=== PATIENT | female | born 1930 | race Caucasian/White ===

== ENCOUNTER 2018-05-26 09:43 | Day surgery (SDC) | payer MEDICARE ==
[~2018-05-26] VITALS: Ht 167.6 cm; Wt 80.5 kg
[~2018-05-26 09:43] MED LIST: ALBU8.5H8 IH; ASPI-612 PO; ATOR40TA71 PO; BUDE10.24 IH; CLOP75TA8 PO; FERR325T39 PO; HYDR12.5 PO; LISI-600 PO; MULT-1141 PO
[2018-05-26 10:00] VITALS: BP 102/63
[2018-05-26] MEDS ORDERED: CYAN10006 IM (10:16)
[2018-05-26] MEDS ORDERED: FURO-150 PO (10:16)
[2018-05-26] MEDS ORDERED: FOLI1TAB16 PO (10:16)
[2018-05-26] MEDS ORDERED: HYDR-3972 PO (10:17)
[2018-05-26] MEDS ORDERED: VIT1TABL83 PO (10:18)
[2018-05-26] MEDS ORDERED: METO25TA6 PO (10:18)
[2018-05-26] MEDS ORDERED: ERGO500014 PO (10:19)
[2018-05-26] MEDS ORDERED: ALBU8.5H8 INH (10:19)
[2018-05-26] MEDS ORDERED: [UNRECOGNIZED DRUG - CODE] IM (10:23)
[2018-05-26] MEDS ORDERED: fentaNYL/PF 50MCG/1 ML 2ML syringe ONE (10:47)
[2018-05-26] MEDS ORDERED: MIDAZolam 5mg/5ml vial ONE (10:47)
[2018-05-26] MEDS ORDERED: LIDOcaine Viscous 15ml cup ONE (10:47)
[2018-05-26 11:50] VITALS: BP 147/55
[2018-05-26 11:58] VITALS: BP 141/57
[2018-05-26 12:08] VITALS: BP 140/48
[2018-05-26 12:18] VITALS: BP 127/52
== END 2018-05-26 12:30 | disposition home or self-care (01) ==
LOC: GI LAB 09:43
PROVIDERS: ATTEND Internal Medicine Gastroenterology
DX: K29.50 Unspecified chronic gastritis without bleeding (principal); K44.9 Diaphragmatic hernia without obstruction or gangrene; D50.9 Iron deficiency anemia, unspecified; K22.8 Other specified diseases of esophagus
CPT/HCPCS: 43239; J2250; J3010; J7030; 45378; 88305; 99152; 99153; A4620

== ENCOUNTER 2018-06-19 12:36 | Emergency (ER) | payer MEDICARE ==
[~2018-06-19] VITALS: Ht 167.6 cm; Wt 79.5 kg
[~2018-06-19 12:36] MED LIST changes: +ALBU8.5H8 INH; -BUDE10.24 IH; +CYAN10006 IM; +ERGO500014 PO; +FOLI1TAB16 PO; +FURO-150 PO; +HYDR-3972 PO; -HYDR12.5 PO; +METO25TA6 PO; +VIT1TABL83 PO; +[UNRECOGNIZED DRUG - CODE] IM
[2018-06-19] MEDS ORDERED: LIDOcaine 5% patch TP ONE (13:15)
[2018-06-19] MEDS ORDERED: triamcinolone acetonide 40mg/ml inj IM ONE (13:15)
[2018-06-19] MEDS ORDERED: traMADol 50MG tablet PO ONE (13:15)
[2018-06-19] MEDS ORDERED: BUPIVAcaine/PF 2.5 mg/ml (0.25%) 30ml vial IJ ONE (13:15)
[2018-06-19] MEDS ORDERED: acetaminophen 325mg tablet PO ONE (13:15)
[2018-06-19] MEDS ORDERED: BUPIVAcaine/PF 2.5mg/ml (0.25%) 10ml vial IJ ONE (13:25)
[2018-06-19] MEDS ORDERED: LIDO700A32 TOP (13:47)
[2018-06-19] MEDS ORDERED: TRAM50TA2 PO (13:47)
[2018-06-19 13:58] VITALS: BP 121/97
== END 2018-06-19 13:59 | disposition home or self-care (01) ==
LOC: ER 12:37
DX: M54.5 Low back pain (principal); G89.29 Other chronic pain; I10 Essential (primary) hypertension; J45.909 Unspecified asthma, uncomplicated; Z98.890 Other specified postprocedural states; Z79.82 Long term (current) use of aspirin; Z79.899 Other long term (current) drug therapy
CPT/HCPCS: 99284; J3301; J3490

== ENCOUNTER 2018-07-26 15:48 | Inpatient (IN) | payer MEDICARE | END 2018-08-01 17:20 | disposition home or self-care (01) | LOC: SUR 3N 07-31 12:05 → ER 15:48 → CICU 2S 07-27 16:29 → SUR 3N 19:52 | PROC: 3E03317 Introduction of Other Thrombolytic into Peripheral Vein, Percutaneous Approach (ICD-10-PCS; principal; ~2018-07-26) | DX: I73.9 Peripheral vascular disease, unspecified (principal); N18.4 Chronic kidney disease, stage 4 (severe); J44.9 Chronic obstructive pulmonary disease, unspecified; E78.5 Hyperlipidemia, unspecified; I70.292 Other atherosclerosis of native arteries of extremities, left leg; Z72.0 Tobacco use ==

== ENCOUNTER 2018-08-05 09:52 | Emergency (ER) | payer MEDICARE ==
[~2018-08-05] VITALS: Ht 167.6 cm; Wt 79.0 kg
[~2018-08-05 09:52] MED LIST changes: -ALBU8.5H8 INH; +APIX5TAB3 PO; -ASPI-612 PO; +BUDE10.2 IH; -FURO-150 PO; -[UNRECOGNIZED DRUG - CODE] IM; +[UNRECOGNIZED DRUG - CODE] SQ
[2018-08-05 11:06] LABS: BASOPHILS % (AUTO) 1.5 % (0-1); EOSINOPHILS # (AUTO) 0.1 X10'3 (0-0.9); EOSINOPHILS % (AUTO) 3.2 % (0-6); LYMPHOCYTES # (AUTO) 0.6 X10'3 (1.1-4.8); LYMPHOCYTES % (AUTO) 20.3 % (21-51); MEAN CORPUSCULAR HEMOGLOBIN 35.8 PG (27.0-31.0); MEAN CORPUSCULAR HGB CONC 33.3 g/dL (33.0-36.5); MEAN CORPUSCULAR VOLUME 107.5 FL (78-98); MEAN PLATELET VOLUME 10.1 FL (7.4-10.4); MONOCYTES # (AUTO) 0.3 X10'3 (0-0.9); MONOCYTES % (AUTO) 9.7 % (2-12); NEUTROPHILS % (AUTO) 65.3 % (42-75); PLATELET COUNT 141 X10'3 (140-440); RED BLOOD COUNT 2.23 X10'6 (4.20-5.60); RED CELL DISTRIBUTION WIDTH 28.9 % (11.5-14.5); WHITE BLOOD COUNT 3.1 X10'3 (4.5-11.0)
[2018-08-05 11:22] LABS: ALANINE AMINOTRANSFERASE 21 U/L (12-78); ALBUMIN 2.7 G/DL (3.4-5.0); ALBUMIN/GLOBULIN RATIO 0.9 (1.1-1.5); ALKALINE PHOSPHATASE 55 IU/L (46-116); ANION GAP 6 (8-16); ASPARTATE AMINO TRANSFERASE 11 U/L (10-37); BILIRUBIN,TOTAL 0.3 MG/DL (0.1-1.0); BLOOD UREA NITROGEN 16 MG/DL (7-18); BUN/CREATININE RATIO 13.1 (6.6-38.0); CALCIUM 8.2 MG/DL (8.5-10.1); CHLORIDE 110 MMOL/L (99-107); CREATININE 1.22 MG/DL (0.40-0.90); GLUCOSE 121 MG/DL (70-104); POTASSIUM 4.5 MMOL/L (3.5-5.1); SODIUM 141 MMOL/L (135-145); TOTAL CARBON DIOXIDE 24.8 MMOL/L (24-32); TOTAL PROTEIN 5.8 G/DL (6.4-8.2); eGFR 42 ML/MIN
[2018-08-05 11:38] LABS: PLATELET ESTIMATE NORMAL
[2018-08-05 11:41] LABS: ANISOCYTOSIS 3+; HYPOCHROMASIA 1+
[2018-08-05 11:42] LABS: ELLIPTOCYTES 1+; POLYCHROMASIA FEW; SCHISTOCYTES 1+
[2018-08-05] MEDS ORDERED: ACET-3068 PO (12:57)
[2018-08-05 13:10] VITALS: BP 165/87
== END 2018-08-05 13:14 | disposition home or self-care (01) ==
LOC: ER 09:52
DX: I73.89 Other specified peripheral vascular diseases (principal); E78.00 Pure hypercholesterolemia, unspecified; I10 Essential (primary) hypertension; J45.909 Unspecified asthma, uncomplicated; G89.29 Other chronic pain; F17.200 Nicotine dependence, unspecified, uncomplicated; Z98.890 Other specified postprocedural states; Z79.899 Other long term (current) drug therapy; Z79.82 Long term (current) use of aspirin
CPT/HCPCS: 36415; 80053; 85025; 85610; 93922; 93926; 99284

== ENCOUNTER 2018-08-07 14:20 | Emergency (ER) | payer MEDICARE ==
[~2018-08-07] VITALS: Ht 167.6 cm; Wt 79.5 kg
[~2018-08-07 14:20] MED LIST changes: +ACET-3068 PO
[2018-08-07 14:46] VITALS: BP 146/60
[2018-08-07] MEDS ORDERED: TRIA15CR61 TP (15:29)
== END 2018-08-07 15:50 | disposition home or self-care (01) ==
LOC: ER 14:21
DX: R23.4 Changes in skin texture (principal); I73.9 Peripheral vascular disease, unspecified; I10 Essential (primary) hypertension; E78.00 Pure hypercholesterolemia, unspecified; J45.909 Unspecified asthma, uncomplicated; G89.29 Other chronic pain; M54.9 Dorsalgia, unspecified; Z88.8 Allergy status to other drugs, medicaments and biological substances
CPT/HCPCS: 99283

== ENCOUNTER 2018-08-17 15:39 | Outpatient (CLI) | payer MEDICARE ==
[~2018-08-17 15:39] MED LIST changes: +TRIA15CR61 TP
== END 2018-08-17 23:59 | disposition home or self-care (01) ==
LOC: VAS 15:39
PROVIDERS: ATTEND Surgery
DX: M79.604 Pain in right leg (principal); R60.0 Localized edema; I10 Essential (primary) hypertension; J45.909 Unspecified asthma, uncomplicated; F17.200 Nicotine dependence, unspecified, uncomplicated
CPT/HCPCS: 93971

== ENCOUNTER 2018-09-27 10:39 | Inpatient (IN) | payer MEDICARE ==
[~2018-09-27] VITALS: Ht 167.6 cm; Wt 78.4 kg
[~2018-09-27 10:39] MED LIST changes: -ACET-3068 PO; -TRIA15CR61 TP
[2018-09-27] MEDS ORDERED: heparin 25,000 UNIT/250ml bag 250 ML IV SCH (11:57)
[2018-09-27] MEDS ORDERED: heparin 10,000 units/1 ML INJ IV ONE (12:00)
[2018-09-27 12:27] LABS: EOSINOPHILS # (AUTO) 0.1 X10'3 (0-0.9); LYMPHOCYTES # (AUTO) 0.9 X10'3 (1.1-4.8); MONOCYTES # (AUTO) 0.2 X10'3 (0-0.9); NEUTROPHILS # (AUTO) 1.3 X10'3 (1.8-7.7); WHITE BLOOD COUNT 2.6 X10'3 (4.5-11.0)
[2018-09-27 12:28] LABS: BASOPHILS % (AUTO) 1.3 % (0-1); EOSINOPHILS % (AUTO) 4.7 % (0-6); HEMATOCRIT 30.5 % (35.0-45.0); HEMOGLOBIN 10.2 g/dl (12.0-16.0); LYMPHOCYTES % (AUTO) 35.3 % (21-51); MEAN CORPUSCULAR HEMOGLOBIN 35.2 PG (27.0-31.0); MEAN CORPUSCULAR HGB CONC 33.4 g/dL (33.0-36.5); MEAN CORPUSCULAR VOLUME 105.4 FL (78-98); MEAN PLATELET VOLUME 10.3 FL (7.4-10.4); NEUTROPHILS % (AUTO) 50.7 % (42-75); PLATELET COUNT 151 X10'3 (140-440); RED BLOOD COUNT 2.89 X10'6 (4.20-5.60)
[2018-09-27 12:45] LABS: ALANINE AMINOTRANSFERASE 18 U/L (12-78); ALBUMIN 3.4 G/DL (3.4-5.0); ALBUMIN/GLOBULIN RATIO 0.9 (1.1-1.5); ALKALINE PHOSPHATASE 80 IU/L (46-116); ANION GAP 7 (8-16); ASPARTATE AMINO TRANSFERASE 8 U/L (10-37); BILIRUBIN,TOTAL 0.5 MG/DL (0.1-1.0); BLOOD UREA NITROGEN 27 MG/DL (7-18); CALCIUM 8.8 MG/DL (8.5-10.1); CHLORIDE 105 MMOL/L (99-107); GLUCOSE 117 MG/DL (70-104); POTASSIUM 4.7 MMOL/L (3.5-5.1); SODIUM 138 MMOL/L (135-145); TOTAL CARBON DIOXIDE 25.7 MMOL/L (24-32); TOTAL PROTEIN 7.2 G/DL (6.4-8.2); eGFR 33 ML/MIN
[2018-09-27 12:50] LABS: PARTIAL THROMBOPLASTIN TIME 31 SECONDS (22-32)
[2018-09-27 12:51] LABS: MAGNESIUM 2.4 MG/DL (1.5-2.4)
[2018-09-27 12:59] LABS: ANISOCYTOSIS 3+; PLATELET ESTIMATE NORMAL; TOTAL CELLS COUNTED 100
--- NOTE | 2018-09-27 13:03 | NUR ---
SOFTWARE DESIGN MANAGER AT BEDSIDE.
[2018-09-27] MEDS ORDERED: FURO-149 PO (13:07)
[2018-09-27] MEDS: heparin 25,000 UNIT/250ml bag 250 ML IV SCH ×2 (13:20→20:11)
[2018-09-27] MEDS ORDERED: ondansetron/PF 4mg/2ml inj IV PRN (13:20)
[2018-09-27] MEDS ORDERED: potassium CL 10mEq/100ml bag 100 ML IV PRN ×2 (13:20)
[2018-09-27] MEDS ORDERED: magnesium 4gm in 100ml NS 100 ML IV PRN (13:20)
[2018-09-27] MEDS ORDERED: magnesium 2GM in 50ml NS 50 ML IV PRN (13:20)
[2018-09-27] MEDS ORDERED: acetaminophen 325mg tablet PO PRN (13:20)
[2018-09-27] MEDS ORDERED: heparin 10,000 units/1 ML INJ IV PRN (13:20)
[2018-09-27] MEDS ORDERED: potassium Cl 20 mEq SR tablet PO PRN ×2 (13:20)
[2018-09-27] MEDS ORDERED: mag hydrox/Alum hydrox/simeth 30ml oral suspension PO PRN (13:20)
[2018-09-27] MEDS ORDERED: APIX5TAB5 PO (13:48)
[2018-09-27 14:38] VITALS: BP 140/55
--- NOTE | 2018-09-27 15:00 | NUR ---
Patient admitted to room 3018b. Patient stable and denies complaints. Bed is low and locked, call light within reach. Will continue to monitor at this time.
--- NOTE | 2018-09-27 15:05 | NUR ---
PAGER ID: [phone] MESSAGE: RIC Ta, ext [phone], [phone], Cale. Patient asking for water, confirm NPO status please, Thank you.
--- NOTE | 2018-09-27 15:25 | NUR ---
Dr. Quiroz at bedside, dewayne'd patient having dinner, NPO after midnight tonight for surgery tomorrow.
[2018-09-27 15:36] VITALS: BP 155/50
[2018-09-27 18:00] VITALS: BP 154/41
--- NOTE | 2018-09-27 18:17 | NUR ---
Orientee documentation: I have reviewed and agree with all interventions, assessments performed and documented by Cely LARIOS. Orientee Medication Administration: For this medication-pass time frame, all medication were reviewed, dispensed, administered and documented per hospital policy by Cely LARIOS. Constructive criticism given as needed.
[2018-09-27] MEDS ORDERED: ringers solution, lacted 1,000 ML IV ONE (18:19)
--- NOTE | 2018-09-27 18:23 | NUR ---
Problems reprioritized. Patient report given, questions answered & plan of care reviewed with RIC Ernst. Patient is currently resting in bed, bed locked and low, call light in reach. Heparin drip infusing at 1300units/hr. Stable at shift change.
--- NOTE | 2018-09-27 18:30 | NUR ---
Patient in room PCU 3018. I have received report from Georgie/ Cely LARIOS and had the opportunity to ask questions and assume patient care. Will continue to monitor.
--- NOTE | 2018-09-27 19:02 | NUR ---
Notified Dr. Zhu that the patient's PTT came back at 102 critical. Received order to follow protocol. Will continue to monitor.
--- NOTE | 2018-09-27 19:07 | NUR ---
Held heparin per protocol, will continue to monitor.
[2018-09-27 22:00] VITALS: BP 172/50
[2018-09-28] VITALS (23 sets, daily range): BP systolic 118–196; BP diastolic 34–68
[2018-09-28 02:19] LABS: BASOPHILS % (AUTO) 1.5 % (0-1); EOSINOPHILS # (AUTO) 0.1 X10'3 (0-0.9); EOSINOPHILS % (AUTO) 4.5 % (0-6); HEMATOCRIT 25.3 % (35.0-45.0); HEMOGLOBIN 8.4 g/dl (12.0-16.0); LYMPHOCYTES # (AUTO) 1.2 X10'3 (1.1-4.8); LYMPHOCYTES % (AUTO) 41.9 % (21-51); MEAN CORPUSCULAR HGB CONC 33.1 g/dL (33.0-36.5); MEAN CORPUSCULAR VOLUME 105.6 FL (78-98); MEAN PLATELET VOLUME 10.3 FL (7.4-10.4); MONOCYTES # (AUTO) 0.2 X10'3 (0-0.9); NEUTROPHILS # (AUTO) 1.3 X10'3 (1.8-7.7); NEUTROPHILS % (AUTO) 44.1 % (42-75); PLATELET COUNT 122 X10'3 (140-440); RED CELL DISTRIBUTION WIDTH 31.7 % (11.5-14.5); WHITE BLOOD COUNT 2.9 X10'3 (4.5-11.0)
[2018-09-28 02:26] LABS: ALANINE AMINOTRANSFERASE 14 U/L (12-78); ALBUMIN 2.6 G/DL (3.4-5.0); ALBUMIN/GLOBULIN RATIO 0.8 (1.1-1.5); ALKALINE PHOSPHATASE 65 IU/L (46-116); ANION GAP 3 (8-16); ASPARTATE AMINO TRANSFERASE 10 U/L (10-37); BILIRUBIN,TOTAL 0.3 MG/DL (0.1-1.0); BLOOD UREA NITROGEN 23 MG/DL (7-18); BUN/CREATININE RATIO 18.4 (6.6-38.0); CALCIUM 7.9 MG/DL (8.5-10.1); CHLORIDE 110 MMOL/L (99-107); CREATININE 1.25 MG/DL (0.40-0.90); GLUCOSE 102 MG/DL (70-104); MAGNESIUM 2.1 MG/DL (1.5-2.4); POTASSIUM 4.2 MMOL/L (3.5-5.1); SODIUM 140 MMOL/L (135-145); TOTAL CARBON DIOXIDE 27.4 MMOL/L (24-32); TOTAL PROTEIN 5.7 G/DL (6.4-8.2); eGFR 41 ML/MIN
[2018-09-28 03:23] LABS: ANISOCYTOSIS 3+; PLATELET ESTIMATE DECREASED; TOTAL CELLS COUNTED 50
[2018-09-28 03:24] LABS: ELLIPTOCYTES FEW; POLYCHROMASIA FEW
[2018-09-28] MEDS ORDERED: famotidine 20mg tablet PO ONE ×2 (06:00→16:00)
--- NOTE | 2018-09-28 06:10 | NUR ---
Patient requested breathing treatment, called Dr. Zhu and received order for Duoneb Q4 PRN, Paged RT.
--- NOTE | 2018-09-28 06:30 | NUR ---
Problems reprioritized. Patient report given, questions answered & plan of care reviewed with Georgie & Cely LARIOS.
[2018-09-28] MEDS: HYDROmorphone inj. 0.5 MG/0.5 ML DISP.SYRIN IV PRN (06:57)
--- NOTE | 2018-09-28 07:21 | NUR ---
Patient in room PCU 3018. I have received report from RIC Montague and had the opportunity to ask questions and assume patient care. Patient is currently resting in bed, bed locked and low, call light in reach. Heparin running at 1100 units/hr and LR running at 50ml/hr per orders. No acute distress, will continue to monitor.
--- NOTE | 2018-09-28 07:21 | NUR ---
PAGER ID: [phone] MESSAGE: RIC Ta, ext [phone], Cale, BP was 196/67 this AM, gave 0.5mg dilaudid for pain, BP currently 154/64. Pharmacy requesting med req to be addressed, patient normally takes metoprolol at home for BP.
[2018-09-28] MEDS ORDERED: cyanocobalamin 1,000 mcg/ml inj IM SCH (07:40)
[2018-09-28] MEDS: K and/or MAG REPLACEMENT MC SCH (08:00)
--- NOTE | 2018-09-28 08:39 | NUR ---
PTT therapeutic@50 with heparin at 1100 units/hr. put in next PTT for 1440.
[2018-09-28] MEDS: multivitamins, therapeutics tablet PO SCH (08:57)
[2018-09-28] MEDS: vitamin B comp w/Vit. C tab 1 TAB TABLET PO SCH (08:58)
[2018-09-28] MEDS: folic acid 1mg tablet PO SCH (08:58)
[2018-09-28] MEDS: ferrous sulfate 325mg tablet PO SCH ×2 (08:58→20:01)
[2018-09-28] MEDS: lisinopril 20mg tablet PO SCH (09:01)
[2018-09-28] MEDS: metoprolol tartrate 25mg tablet PO SCH ×2 (09:02→20:01)
[2018-09-28] MEDS ORDERED: ceFAZolin 1000mg inj ONE ×3 (09:18→11:18)
[2018-09-28] MEDS ORDERED: heparin 10,000 units/1 ML INJ ONE (09:18)
--- NOTE | 2018-09-28 09:44 | NUR ---
Surgical transported patient to OR for fempop procedure. Patient vitals stable at time of transfer.
[2018-09-28] MEDS ORDERED: LIDOcaine 1% (10mg/ml) 2ml vial ONE (10:46)
[2018-09-28] MEDS ORDERED: midazolam 2 mg/2 ml injection ONE (10:50)
[2018-09-28] MEDS ORDERED: sevoflurane 250ml liquid IH ONE (10:53)
[2018-09-28] MEDS ORDERED: rocuronium 10mg/ml inj IV ONE (11:00)
[2018-09-28] MEDS ORDERED: propofol inj 20 ML IV ONE (11:00)
[2018-09-28] MEDS ORDERED: fentaNYL/PF 50MCG/1 ML 2ML syringe ONE (11:01)
[2018-09-28] MEDS ORDERED: albumin (Human) 5% 250ml 250 ML IV ONE ×2 (11:03)
[2018-09-28] MEDS ORDERED: heparin 1,000unit/ml 10ml vial 10 ML ONE (11:18)
--- NOTE | 2018-09-28 14:40 | NUR ---
Received from OR via ICU bed, accompanied by Anesthesiologist MARIA LUISA and report given by Anesthesiolgist. Pt moves all extremeties, VS stable, ART line zeroed and calibrated, MD at bedside. Provena to groin and provena to left medial lower extrem present, good seal to dressings, with left foot dressing CDI and wrapped with gauze. Long island dressing from upper medial thigh to mid calf also CDI. Mask to 10L present O2 sat 98%. IV x2 to Right arm 20G. Schwab cath draining yellow fluid.
--- NOTE | 2018-09-28 15:05 | NUR ---
Report given to receiving nurse, belongings gathered and taken to room 2040
[2018-09-28] MEDS ORDERED: meperidine/PF 25mg/ml syringe ONE (15:12)
[2018-09-28] MEDS ORDERED: ringers solution, lacted 1,000 ML IV SCH (15:24)
[2018-09-28] MEDS ORDERED: hydrALAZINE 20mg/ml inj. IV PRN (15:25)
[2018-09-28] MEDS ORDERED: enalaprilat dihydrate 2.5mg/2ml vial IV PRN (15:25)
[2018-09-28] MEDS ORDERED: morphine 4 MG/ML inj SYRINge IV PRN ×2 (15:25)
[2018-09-28] MEDS ORDERED: ondansetron/PF 4mg/2ml inj IV PRN (15:25)
[2018-09-28] MEDS ORDERED: fentaNYL/PF 50MCG/1 ML 2ML syringe IV PRN ×2 (15:25)
--- NOTE | 2018-09-28 15:26 | NUR ---
Report called to Chelsey LARIOS in ICU.
--- NOTE | 2018-09-28 15:50 | NUR ---
Report called to receiving nurse. Transferred via ICU bed Belongings to be brought from PCU to ICU, but gold chain in the chart, hearing aid in ear. Special Issues communicated to receiving nurse. VS remained stable, dressings and incisions remain CDI and shown to receiving nurse. Pt marcos catheter emptied and documented, IV's intact, ART line zeroed.
--- NOTE | 2018-09-28 18:35 | NUR ---
Patient in room ICU 2040. I have received report from Chelsey LARIOS, and had the opportunity to ask questions and assume patient care.
--- NOTE | 2018-09-28 20:00 | NUR ---
PT is resting with no s/s of distress noted at this time. VSS. PT is receiving 2L O2 to NC, tolerating well, O2 sat >95%. PT has Prevena W[place] to LT groin and calf, CDI with no drainage noted. PT also has Island drsg to inner LT thigh and lower leg, some oozing noted and marked. A-Line to LT radial, CDI, zeroed and transduced to pressure tubing. Schwab in place, draining to gravity. Bed is locked and low. Call light is within reach. Will continue to monitor.
[2018-09-28] MEDS: ipratropium/albuterol 3ml nebule NEB PRN (20:01)
[2018-09-28] MEDS: HYDROmorphone 1 mg/ml syringe IV PRN (20:02)
[2018-09-28] MEDS: budesonide 0.5mg/2ml UD nebule IH SCH (20:02)
[2018-09-28] MEDS: atorvastatin 20mg tablet PO SCH (22:03)
[2018-09-28] MEDS: normal saline 1000ml 1,000 ML IV SCH (22:04)
--- NOTE | 2018-09-28 23:00 | NUR ---
PT sleeping with no s/s of distress noted at this time. VSS. Bed is locked and low. Call light is within reach. Will continue to monitor.
[2018-09-29] VITALS (19 sets, daily range): BP systolic 96–142; BP diastolic 32–47
--- NOTE | 2018-09-29 02:00 | NUR ---
Arterial line to LT radial DC'd d/t it continuously not working and line would not draw. Line DC'd, direct pressure held until hemostasis achieved. Drsg placed. Will continue to monitor.
[2018-09-29] MEDS: heparin 25,000 UNIT/250ml bag 250 ML IV SCH (03:48)
[2018-09-29] MEDS: HYDROmorphone inj. 0.5 MG/0.5 ML DISP.SYRIN IV PRN ×3 (04:09→23:39)
--- NOTE | 2018-09-29 06:43 | NUR ---
Problems reprioritized. Patient report given, questions answered & plan of care reviewed with Conrad LARIOS.
[2018-09-29 06:56] LABS: BASOPHILS % (AUTO) 0.4 % (0-1); EOSINOPHILS # (AUTO) 0.1 X10'3 (0-0.9); EOSINOPHILS % (AUTO) 1.8 % (0-6); HEMOGLOBIN 7.8 g/dl (12.0-16.0); LYMPHOCYTES # (AUTO) 0.6 X10'3 (1.1-4.8); LYMPHOCYTES % (AUTO) 10.1 % (21-51); MEAN CORPUSCULAR HEMOGLOBIN 35.3 PG (27.0-31.0); MEAN CORPUSCULAR HGB CONC 32.4 g/dL (33.0-36.5); MEAN CORPUSCULAR VOLUME 108.8 FL (78-98); MEAN PLATELET VOLUME 10.5 FL (7.4-10.4); MONOCYTES # (AUTO) 0.5 X10'3 (0-0.9); NEUTROPHILS # (AUTO) 4.5 X10'3 (1.8-7.7); NEUTROPHILS % (AUTO) 79.7 % (42-75); PLATELET COUNT 127 X10'3 (140-440); RED BLOOD COUNT 2.21 X10'6 (4.20-5.60); RED CELL DISTRIBUTION WIDTH 31.8 % (11.5-14.5); WHITE BLOOD COUNT 5.7 X10'3 (4.5-11.0)
[2018-09-29 07:07] LABS: ALANINE AMINOTRANSFERASE 19 U/L (12-78); ALBUMIN 2.9 G/DL (3.4-5.0); ALKALINE PHOSPHATASE 76 IU/L (46-116); ANION GAP 7 (8-16); ASPARTATE AMINO TRANSFERASE 13 U/L (10-37); BILIRUBIN,TOTAL 0.4 MG/DL (0.1-1.0); BLOOD UREA NITROGEN 23 MG/DL (7-18); BUN/CREATININE RATIO 16.2 (6.6-38.0); CALCIUM 7.5 MG/DL (8.5-10.1); CHLORIDE 109 MMOL/L (99-107); CREATININE 1.42 MG/DL (0.40-0.90); GLUCOSE 129 MG/DL (70-104); MAGNESIUM 1.9 MG/DL (1.5-2.4); POTASSIUM 4.8 MMOL/L (3.5-5.1); SODIUM 140 MMOL/L (135-145); TOTAL CARBON DIOXIDE 24.1 MMOL/L (24-32); TOTAL PROTEIN 5.9 G/DL (6.4-8.2); eGFR 35 ML/MIN
[2018-09-29 07:34] LABS: ANISOCYTOSIS 3+; LARGE PLATELETS FEW; PLATELET ESTIMATE DECREASED
[2018-09-29 07:35] LABS: SCHISTOCYTES FEW
[2018-09-29] MEDS: normal saline 1000ml 1,000 ML IV SCH (07:38)
[2018-09-29] MEDS: lisinopril 20mg tablet PO SCH (07:43)
[2018-09-29] MEDS: metoprolol tartrate 25mg tablet PO SCH ×2 (07:43→19:06)
[2018-09-29] MEDS: albuterol 2.5 MG/3 ML nebule NEB PRN ×2 (07:47→20:05)
[2018-09-29] MEDS: budesonide 0.5mg/2ml UD nebule IH SCH ×2 (07:47→20:05)
[2018-09-29] MEDS: K and/or MAG REPLACEMENT MC SCH (08:00)
[2018-09-29] MEDS: vitamin B comp w/Vit. C tab 1 TAB TABLET PO SCH (08:28)
[2018-09-29] MEDS: ferrous sulfate 325mg tablet PO SCH ×2 (08:28→19:05)
[2018-09-29] MEDS: multivitamins, therapeutics tablet PO SCH (08:28)
[2018-09-29] MEDS: folic acid 1mg tablet PO SCH (08:29)
--- NOTE | 2018-09-29 13:28 | NUR ---
Dressings to left leg saturated. Island dressing replaced. Provina dressing still intact with good suction
[2018-09-29] MEDS: HYDROmorphone 1 mg/ml syringe IV PRN (14:38)
--- NOTE | 2018-09-29 15:33 | NUR ---
PAGER ID: [phone] MESSAGE: Guerline Madsen 2040: patient is being transferred back to your service. She is getting ready to transfer to surgical. Wanted to inform you urine output is low. Thanks, Conrad LARIOS [phone]
--- NOTE | 2018-09-29 16:02 | NUR ---
Report received from Conrad LARIOS in ICU. Awaiting pt arrival.
--- NOTE | 2018-09-29 16:02 | NUR ---
Report called. Patient is going to 345A
--- NOTE | 2018-09-29 16:30 | NUR ---
Patient transferred to [facility] with all belongings. Oriented to room and given call light with instructions to call for assistance. BLL. SRx2. Nurse notified of patient arrival. and alerted that there were no supplies to connect patient to oxygen
--- NOTE | 2018-09-29 16:43 | NUR ---
Pt has arrived to floor. Appears stable at this time, will continue to monitor closely
--- NOTE | 2018-09-29 18:04 | NUR ---
Patient in room ADAIR 345. I have received report from RIC Ash and had the opportunity to ask questions and assume patient care.
--- NOTE | 2018-09-29 18:49 | NUR ---
Problems reprioritized. Patient report given, questions answered & plan of care reviewed with PEDRO LUIS LARIOS.
[2018-09-29] MEDS: atorvastatin 20mg tablet PO SCH (22:21)
[2018-09-30] VITALS (9 sets, daily range): BP systolic 110–136; BP diastolic 32–45
--- NOTE | 2018-09-30 02:22 | NUR ---
proximal upper island dressing over surgical site replaced due to saturation and falling off.
[2018-09-30 05:16] LABS: BASOPHILS % (AUTO) 0.3 % (0-1); EOSINOPHILS # (AUTO) 0.1 X10'3 (0-0.9); LYMPHOCYTES # (AUTO) 0.7 X10'3 (1.1-4.8); LYMPHOCYTES % (AUTO) 11.3 % (21-51); MEAN CORPUSCULAR HEMOGLOBIN 35.1 PG (27.0-31.0); MEAN CORPUSCULAR HGB CONC 32.9 g/dL (33.0-36.5); MEAN PLATELET VOLUME 10.9 FL (7.4-10.4); MONOCYTES # (AUTO) 0.5 X10'3 (0-0.9); MONOCYTES % (AUTO) 8.9 % (2-12); NEUTROPHILS # (AUTO) 4.7 X10'3 (1.8-7.7); NEUTROPHILS % (AUTO) 77.5 % (42-75); PLATELET COUNT 112 X10'3 (140-440); RED BLOOD COUNT 1.95 X10'6 (4.20-5.60); RED CELL DISTRIBUTION WIDTH 31.4 % (11.5-14.5)
[2018-09-30 05:25] LABS: ALANINE AMINOTRANSFERASE 15 U/L (12-78); ALBUMIN 2.6 G/DL (3.4-5.0); ALBUMIN/GLOBULIN RATIO 0.9 (1.1-1.5); ALKALINE PHOSPHATASE 71 IU/L (46-116); ANION GAP 6 (8-16); ASPARTATE AMINO TRANSFERASE 11 U/L (10-37); BILIRUBIN,TOTAL 0.4 MG/DL (0.1-1.0); BLOOD UREA NITROGEN 25 MG/DL (7-18); BUN/CREATININE RATIO 15.4 (6.6-38.0); CALCIUM 7.7 MG/DL (8.5-10.1); CHLORIDE 106 MMOL/L (99-107); CREATININE 1.62 MG/DL (0.40-0.90); GLUCOSE 136 MG/DL (70-104); MAGNESIUM 1.9 MG/DL (1.5-2.4); POTASSIUM 4.4 MMOL/L (3.5-5.1); SODIUM 135 MMOL/L (135-145); TOTAL CARBON DIOXIDE 22.9 MMOL/L (24-32); TOTAL PROTEIN 5.5 G/DL (6.4-8.2); eGFR 30 ML/MIN
[2018-09-30 05:31] LABS: HEMATOCRIT 20.9 % (35.0-45.0); HEMOGLOBIN 6.9 g/dl (12.0-16.0)
[2018-09-30 06:13] LABS: PLATELET ESTIMATE NORMAL
[2018-09-30 06:14] LABS: ANISOCYTOSIS 3+; ELLIPTOCYTES FEW; SCHISTOCYTES FEW; TEAR DROP CELLS FEW
--- NOTE | 2018-09-30 06:36 | NUR ---
Problems reprioritized. Patient report given, questions answered & plan of care reviewed with RIC Whiting.
--- NOTE | 2018-09-30 06:38 | NUR ---
Patient in room ADAIR 345. I have received report from RIC Rangel and had the opportunity to ask questions and assume patient care.
[2018-09-30] MEDS: budesonide 0.5mg/2ml UD nebule IH SCH ×2 (07:16→19:07)
[2018-09-30] MEDS: ipratropium/albuterol 3ml nebule NEB PRN ×2 (07:16→19:07)
[2018-09-30] MEDS: K and/or MAG REPLACEMENT MC SCH (08:00)
[2018-09-30 08:46] LABS: ABG BASE EXCESS -3.2 mmol/L (-2.0-3.0); ABG HCO3 21.8 mmol/L (22.0-26.0); ABG OXYGEN SATURATION 97.3 % (95-98); ABG PCO2 (T) 38.7 mmHg (32.0-45.0); ABG PH (T) 7.368 (7.350-7.450); ABG PO2 (T) 105.6 mmHg (83-108); ALLEN'S TEST Positive; FCOHb 1.3 % (0.5-1.5); FLOW 6 L/min; TOTAL HEMOGLOBIN 7.5 G/dl (12.0-16.0)
[2018-09-30] MEDS: ferrous sulfate 325mg tablet PO SCH ×2 (09:04→20:03)
[2018-09-30] MEDS: folic acid 1mg tablet PO SCH (09:04)
[2018-09-30] MEDS: docusate sod 100mg capsule PO SCH ×2 (09:04→20:03)
[2018-09-30] MEDS: vitamin B comp w/Vit. C tab 1 TAB TABLET PO SCH (09:05)
[2018-09-30] MEDS: multivitamins, therapeutics tablet PO SCH (09:05)
[2018-09-30] MEDS: metoprolol tartrate 25mg tablet PO SCH ×2 (09:05→20:04)
[2018-09-30] MEDS: lisinopril 20mg tablet PO SCH (09:05)
[2018-09-30] MEDS: methylnaltrexone br 12mg/0.6ml inj***SubQ only SQ SCH (09:05)
[2018-09-30 14:15] LABS: HEMOGLOBIN 9.1 g/dl (12.0-16.0); MEAN CORPUSCULAR HGB CONC 33.5 g/dL (33.0-36.5); WHITE BLOOD COUNT 6.8 X10'3 (4.5-11.0)
[2018-09-30 14:17] LABS: HEMATOCRIT 27.1 % (35.0-45.0); MEAN CORPUSCULAR HEMOGLOBIN 35.3 PG (27.0-31.0); MEAN CORPUSCULAR VOLUME 105.3 FL (78-98); PLATELET COUNT 114 X10'3 (140-440); RED BLOOD COUNT 2.58 X10'6 (4.20-5.60); RED CELL DISTRIBUTION WIDTH 29.7 % (11.5-14.5)
[2018-09-30] MEDS: HYDROmorphone 1 mg/ml syringe IV PRN (15:56)
[2018-09-30] MEDS: ceFAZolin 1GM/D5W- ADD-VANTAGE 50 ML IV SCH ×2 (16:25→23:35)
--- NOTE | 2018-09-30 18:05 | NUR ---
Patient in room ADAIR 345. I have received report from Michele LARIOS and had the opportunity to ask questions and assume patient care.
--- NOTE | 2018-09-30 18:15 | NUR ---
Problems reprioritized. Patient report given, questions answered & plan of care reviewed with RIC Morrison.
[2018-09-30] MEDS: atorvastatin 20mg tablet PO SCH (20:03)
--- NOTE | 2018-09-30 21:30 | NUR ---
marcos catheter d/c'd. pt tolerated well. educated pt about the removal and post marcos removal procedure. will continue to monitor.
[2018-10-01] VITALS: BP 121/41
--- NOTE | 2018-10-01 03:34 | NUR ---
bladder scan show 118 mL. encouraged pt to drink fluids
[2018-10-01] MEDS: ipratropium/albuterol 3ml nebule NEB PRN ×2 (04:19→19:08)
--- NOTE | 2018-10-01 04:30 | NUR ---
Dr. Zhu was called concerning new onset of pink, frothy sputum and increased "wet sounds" reported by respiratory after a requested breathing treatment. pt's lungs do sound more wet than the beginning of shift. urine output of [address] Zhu asked about whether the pt take Lasix at home and ordered a one time dose of Lasix IV and to continue home prescription of lasix starting 10/02. will continue to monitor.
[2018-10-01] MEDS ORDERED: furosemide 40mg/4ml inj IV ONE (04:45)
[2018-10-01 06:07] LABS: EOSINOPHILS # (AUTO) 0.1 X10'3 (0-0.9); HEMOGLOBIN 7.7 g/dl (12.0-16.0); LYMPHOCYTES # (AUTO) 0.8 X10'3 (1.1-4.8); MEAN CORPUSCULAR HEMOGLOBIN 35.2 PG (27.0-31.0); MONOCYTES # (AUTO) 0.4 X10'3 (0-0.9)
[2018-10-01 06:10] LABS: BASOPHILS % (AUTO) 0.3 % (0-1); EOSINOPHILS % (AUTO) 2.9 % (0-6); LYMPHOCYTES % (AUTO) 16.6 % (21-51); MEAN CORPUSCULAR HGB CONC 33.2 g/dL (33.0-36.5); MEAN PLATELET VOLUME 10.6 FL (7.4-10.4); MONOCYTES % (AUTO) 8.3 % (2-12); NEUTROPHILS # (AUTO) 3.3 X10'3 (1.8-7.7); NEUTROPHILS % (AUTO) 71.9 % (42-75); PLATELET COUNT 90 X10'3 (140-440); RED BLOOD COUNT 2.17 X10'6 (4.20-5.60); RED CELL DISTRIBUTION WIDTH 29.8 % (11.5-14.5); WHITE BLOOD COUNT 4.6 X10'3 (4.5-11.0)
--- NOTE | 2018-10-01 06:32 | NUR ---
Problems reprioritized. Patient report given, questions answered & plan of care reviewed with Megha LARIOS.
[2018-10-01 06:40] LABS: ALANINE AMINOTRANSFERASE 14 U/L (12-78); ALBUMIN 2.4 G/DL (3.4-5.0); ALBUMIN/GLOBULIN RATIO 0.8 (1.1-1.5); ALKALINE PHOSPHATASE 75 IU/L (46-116); ANION GAP 9 (8-16); ASPARTATE AMINO TRANSFERASE 9 U/L (10-37); BILIRUBIN,TOTAL 0.6 MG/DL (0.1-1.0); BLOOD UREA NITROGEN 28 MG/DL (7-18); BUN/CREATININE RATIO 18.3 (6.6-38.0); CALCIUM 7.6 MG/DL (8.5-10.1); CHLORIDE 105 MMOL/L (99-107); CREATININE 1.53 MG/DL (0.40-0.90); GLUCOSE 126 MG/DL (70-104); POTASSIUM 4.3 MMOL/L (3.5-5.1); SODIUM 135 MMOL/L (135-145); TOTAL CARBON DIOXIDE 21.5 MMOL/L (24-32); TOTAL PROTEIN 5.6 G/DL (6.4-8.2); eGFR 32 ML/MIN
[2018-10-01 06:55] LABS: ANISOCYTOSIS 3+; PLATELET ESTIMATE DECREASED; POLYCHROMASIA FEW
[2018-10-01 07:00] VITALS: BP 157/45
[2018-10-01] MEDS: K and/or MAG REPLACEMENT MC SCH (08:00)
[2018-10-01] MEDS: ceFAZolin 1GM/D5W- ADD-VANTAGE 50 ML IV SCH ×3 (08:04→23:47)
[2018-10-01] MEDS: vitamin B comp w/Vit. C tab 1 TAB TABLET PO SCH (08:04)
[2018-10-01] MEDS: folic acid 1mg tablet PO SCH (08:04)
[2018-10-01] MEDS: docusate sod 100mg capsule PO SCH ×2 (08:04→20:15)
[2018-10-01] MEDS: metoprolol tartrate 25mg tablet PO SCH ×2 (08:05→20:00)
[2018-10-01] MEDS: multivitamins, therapeutics tablet PO SCH (08:05)
[2018-10-01] MEDS: lisinopril 20mg tablet PO SCH (08:06)
[2018-10-01] MEDS: ferrous sulfate 325mg tablet PO SCH ×2 (08:06→20:15)
[2018-10-01] MEDS: budesonide 0.5mg/2ml UD nebule IH SCH ×2 (09:17→19:08)
--- NOTE | 2018-10-01 10:47 | NUR ---
CHECKED PULSES IN LEGS, CHANGED BEDDING, TOILETED PT, AND CHANGED BANDAGES ON LEFT LEF. ASSESSED WOUND VAC AND PROVENA
[2018-10-01 11:00] VITALS: BP 140/50
--- NOTE | 2018-10-01 17:47 | NUR ---
Problems reprioritized. Patient report given, questions answered & plan of care reviewed with ASIYA LARIOS.
[2018-10-01 18:00] VITALS: BP 133/43
--- NOTE | 2018-10-01 18:00 | NUR ---
Patient in room ADAIR 345. I have received report from Megha LARIOS and had the opportunity to ask questions and assume patient care. Addendum: 10/01/18 at 2336 by Jodi Fernandez RN Amended: Links added.
[2018-10-01 19:00] VITALS: BP 133/43
[2018-10-01] MEDS: atorvastatin 20mg tablet PO SCH (20:15)
[2018-10-02] VITALS: BP 128/46
[2018-10-02 05:29] LABS: ALANINE AMINOTRANSFERASE 10 U/L (12-78); ALBUMIN 2.2 G/DL (3.4-5.0); ALBUMIN/GLOBULIN RATIO 0.7 (1.1-1.5); ALKALINE PHOSPHATASE 70 IU/L (46-116); ANION GAP 5 (8-16); ASPARTATE AMINO TRANSFERASE 12 U/L (10-37); BILIRUBIN,TOTAL 0.5 MG/DL (0.1-1.0); BLOOD UREA NITROGEN 27 MG/DL (7-18); BUN/CREATININE RATIO 18.2 (6.6-38.0); CALCIUM 8.2 MG/DL (8.5-10.1); CHLORIDE 108 MMOL/L (99-107); CREATININE 1.48 MG/DL (0.40-0.90); GLUCOSE 116 MG/DL (70-104); POTASSIUM 3.9 MMOL/L (3.5-5.1); SODIUM 138 MMOL/L (135-145); TOTAL CARBON DIOXIDE 24.9 MMOL/L (24-32); TOTAL PROTEIN 5.4 G/DL (6.4-8.2); eGFR 33 ML/MIN
[2018-10-02 05:32] LABS: BASOPHILS % (AUTO) 0.4 % (0-1); EOSINOPHILS # (AUTO) 0.2 X10'3 (0-0.9); EOSINOPHILS % (AUTO) 5.5 % (0-6); HEMATOCRIT 22.9 % (35.0-45.0); HEMOGLOBIN 7.8 g/dl (12.0-16.0); LYMPHOCYTES # (AUTO) 0.8 X10'3 (1.1-4.8); LYMPHOCYTES % (AUTO) 20.4 % (21-51); MEAN CORPUSCULAR HEMOGLOBIN 35.7 PG (27.0-31.0); MEAN CORPUSCULAR HGB CONC 33.8 g/dL (33.0-36.5); MEAN CORPUSCULAR VOLUME 105.6 FL (78-98); MEAN PLATELET VOLUME 10.1 FL (7.4-10.4); MONOCYTES # (AUTO) 0.4 X10'3 (0-0.9); MONOCYTES % (AUTO) 10.2 % (2-12); NEUTROPHILS # (AUTO) 2.6 X10'3 (1.8-7.7); NEUTROPHILS % (AUTO) 63.5 % (42-75); PLATELET COUNT 101 X10'3 (140-440); RED BLOOD COUNT 2.17 X10'6 (4.20-5.60); RED CELL DISTRIBUTION WIDTH 29.6 % (11.5-14.5); WHITE BLOOD COUNT 4.1 X10'3 (4.5-11.0)
--- NOTE | 2018-10-02 06:05 | NUR ---
Patient in room ADAIR 345. I have received report from RIC Zapata and had the opportunity to ask questions and assume patient care.
[2018-10-02 07:21] VITALS: BP 128/39
[2018-10-02] MEDS: budesonide 0.5mg/2ml UD nebule IH SCH ×2 (07:58→19:25)
[2018-10-02] MEDS: methylnaltrexone br 12mg/0.6ml inj***SubQ only SQ SCH (08:00)
[2018-10-02] MEDS: metoprolol tartrate 25mg tablet PO SCH ×2 (08:00→19:14)
[2018-10-02] MEDS: K and/or MAG REPLACEMENT MC SCH (08:00)
[2018-10-02] MEDS: docusate sod 100mg capsule PO SCH ×2 (08:17→19:15)
[2018-10-02] MEDS: ferrous sulfate 325mg tablet PO SCH ×2 (08:17→19:15)
[2018-10-02] MEDS: ceFAZolin 1GM/D5W- ADD-VANTAGE 50 ML IV SCH ×3 (08:17→23:33)
[2018-10-02] MEDS: vitamin B comp w/Vit. C tab 1 TAB TABLET PO SCH (08:18)
[2018-10-02] MEDS: folic acid 1mg tablet PO SCH (08:18)
[2018-10-02] MEDS: furosemide 40mg tablet PO SCH (08:18)
[2018-10-02] MEDS: multivitamins, therapeutics tablet PO SCH (08:18)
[2018-10-02] MEDS: clopidogrel 75mg tablet PO SCH (08:18)
[2018-10-02] MEDS: lisinopril 20mg tablet PO SCH (08:19)
[2018-10-02] MEDS ORDERED: HYDROcodone/acetaminophen 5mg/325mg tablet PO PRN (11:30)
[2018-10-02] MEDS: HYDROcodone/acetaminophen 10/325mg tab PO PRN ×2 (11:42→23:33)
[2018-10-02 11:55] VITALS: BP 145/45
--- NOTE | 2018-10-02 12:58 | NUR ---
Initial: Pt s/p L femoral popliteal bypass and L femoral profunda thromboendarterectomy. L leg wound vacs x2; on calf and upper thigh 5ml output noted in EMR. Pt PO 25-50% heart healthy meals fluctuating. [employer]NE [employer] for ensure enlive TIDWM approval. Send pending MD diet verification. Pt MCV 105.6 receiving MVI/mineral coverage. LBM 10/01 and refused relistor today per EMR. Will continue to monitor for additional protein needs. Rec: 1. continue heart healthy diet per MD 2. ensure enlive TIDWM per MD approval 3. routine bowel care post-op 4. wt per rx Addendum: 10/02/18 at [address] Amended: Links added.
[2018-10-02] MEDS ORDERED: lactose-reduced food (Ensure Enlive) - 237ml bottle PO SCH (13:00)
--- NOTE | 2018-10-02 15:56 | NUR ---
Changed island dressing to left leg. It was soiled. Re-applied gauze and then island dressing. Prevena was alarming. Maria Teresa Lopez RN turned it off and then back on again and it is now working.
[2018-10-02 18:00] VITALS: BP 130/59
--- NOTE | 2018-10-02 18:00 | NUR ---
Problems reprioritized. Patient report given, questions answered & plan of care reviewed with RIC Miller.
--- NOTE | 2018-10-02 18:44 | NUR ---
Patient in room ADAIR 345. I have received report from RIC Ortiz and had the opportunity to ask questions and assume patient care.
[2018-10-02] MEDS: ipratropium/albuterol 3ml nebule NEB PRN (19:25)
[2018-10-02] MEDS: atorvastatin 20mg tablet PO SCH (20:13)
[2018-10-03] VITALS: BP 121/40
--- NOTE | 2018-10-03 06:42 | NUR ---
Problems reprioritized. Patient report given, questions answered & plan of care reviewed with RIC Lopez.
[2018-10-03 07:00] VITALS: BP_SYST 131; BP_SYST 172; BP_DIAS 40; BP_DIAS 84
[2018-10-03] MEDS: budesonide 0.5mg/2ml UD nebule IH SCH ×2 (07:36→19:27)
[2018-10-03] MEDS: albuterol 2.5 MG/3 ML nebule NEB PRN (07:37)
[2018-10-03] MEDS: K and/or MAG REPLACEMENT MC SCH (08:00)
[2018-10-03] MEDS: vitamin B comp w/Vit. C tab 1 TAB TABLET PO SCH (09:12)
[2018-10-03] MEDS: metoprolol tartrate 25mg tablet PO SCH ×2 (09:12→20:16)
[2018-10-03] MEDS: clopidogrel 75mg tablet PO SCH (09:12)
[2018-10-03] MEDS: lisinopril 20mg tablet PO SCH (09:12)
[2018-10-03] MEDS: furosemide 40mg tablet PO SCH (09:13)
[2018-10-03] MEDS: ceFAZolin 1GM/D5W- ADD-VANTAGE 50 ML IV SCH ×2 (09:13→16:05)
[2018-10-03] MEDS: ferrous sulfate 325mg tablet PO SCH ×2 (09:13→20:16)
[2018-10-03] MEDS: docusate sod 100mg capsule PO SCH ×2 (09:13→20:15)
[2018-10-03] MEDS: multivitamins, therapeutics tablet PO SCH (09:13)
[2018-10-03] MEDS: folic acid 1mg tablet PO SCH (09:13)
--- NOTE | 2018-10-03 09:16 | NUR ---
patient has had no labs today
[2018-10-03] MEDS: HYDROcodone/acetaminophen 10/325mg tab PO PRN ×2 (09:38→21:00)
[2018-10-03 11:35] VITALS: BP 111/55
--- NOTE | 2018-10-03 18:22 | NUR ---
Problems reprioritized. Patient report given, questions answered & plan of care reviewed with April Salde RN.
--- NOTE | 2018-10-03 18:29 | NUR ---
Patient in room ADAIR 345. I have received report from RIC ARIAS and had the opportunity to ask questions and assume patient care. Addendum: 10/03/18 at 1829 by Essie Brown RN Amended: Links added.
[2018-10-03] MEDS: ipratropium/albuterol 3ml nebule NEB PRN (19:27)
[2018-10-03 20:00] VITALS: BP_SYST 123; BP_SYST 136; BP_DIAS 37; BP_DIAS 80
[2018-10-03] MEDS: atorvastatin 20mg tablet PO SCH (20:16)
[2018-10-04] VITALS: BP 112/35
[2018-10-04] MEDS: ceFAZolin 1GM/D5W- ADD-VANTAGE 50 ML IV SCH ×2 (00:14→08:43)
[2018-10-04] MEDS: HYDROcodone/acetaminophen 10/325mg tab PO PRN (05:12)
--- NOTE | 2018-10-04 06:27 | NUR ---
Problems reprioritized. Patient report given, questions answered & plan of care reviewed with RIC Dudley.
[2018-10-04 07:00] VITALS: BP 96/37
[2018-10-04] MEDS: budesonide 0.5mg/2ml UD nebule IH SCH (07:32)
[2018-10-04] MEDS: albuterol 2.5 MG/3 ML nebule NEB PRN (07:32)
[2018-10-04] MEDS ORDERED: ergocalciferol (Vitamin D) 50,000 unit capsule PO SCH (08:00)
[2018-10-04] MEDS: K and/or MAG REPLACEMENT MC SCH (08:00)
[2018-10-04] MEDS: lisinopril 20mg tablet PO SCH (08:00)
[2018-10-04] MEDS: metoprolol tartrate 25mg tablet PO SCH (08:00)
[2018-10-04] MEDS: furosemide 40mg tablet PO SCH (08:43)
[2018-10-04] MEDS: folic acid 1mg tablet PO SCH (08:43)
[2018-10-04] MEDS: multivitamins, therapeutics tablet PO SCH (08:43)
[2018-10-04] MEDS: clopidogrel 75mg tablet PO SCH (08:43)
[2018-10-04] MEDS: ferrous sulfate 325mg tablet PO SCH (08:44)
[2018-10-04] MEDS: vitamin B comp w/Vit. C tab 1 TAB TABLET PO SCH (08:44)
[2018-10-04] MEDS: docusate sod 100mg capsule PO SCH (08:45)
[2018-10-04] MEDS: methylnaltrexone br 12mg/0.6ml inj***SubQ only SQ SCH (08:46)
--- NOTE | 2018-10-04 11:00 | NUR ---
pt is being transferred via [facility] to [facility] for further care. Report called to Jennifer LARIOS regarding patient care. IV was removed and pt was safely transferred to [facility].
== END 2018-10-04 11:50 | DRG 253 ==
LOC: ER 10:40 → PCU 3S 14:27 → ICU 2S 09-28 15:42 → SUR 3N 09-29 16:31
PROVIDERS: ADMIT Family Medicine; ATTEND Internal Medicine
PROC: 06BQ0ZZ Excision of Left Saphenous Vein, Open Approach (ICD-10-PCS; 2018-09-28)
PROC: 04CL0ZZ Extirpation of Matter from Left Femoral Artery, Open Approach (ICD-10-PCS; 2018-09-28)
PROC: 041L09L Bypass Left Femoral Artery to Popliteal Artery with Autologous Venous Tissue, Open Approach (ICD-10-PCS; principal; 2018-09-28 10:53)
PROC: 30233N1 Transfusion of Nonautologous Red Blood Cells into Peripheral Vein, Percutaneous Approach (ICD-10-PCS; 2018-09-30)
DX: I70.213 Atherosclerosis of native arteries of extremities with intermittent claudication, bilateral legs (principal); N18.4 Chronic kidney disease, stage 4 (severe); I12.9 Hypertensive chronic kidney disease with stage 1 through stage 4 chronic kidney disease, or unspecified chronic kidney disease; D63.8 Anemia in other chronic diseases classified elsewhere; E78.00 Pure hypercholesterolemia, unspecified; F17.210 Nicotine dependence, cigarettes, uncomplicated; G89.29 Other chronic pain; M54.9 Dorsalgia, unspecified; I99.8 Other disorder of circulatory system; E78.5 Hyperlipidemia, unspecified; J44.9 Chronic obstructive pulmonary disease, unspecified; M10.9 Gout, unspecified; Z79.02 Long term (current) use of antithrombotics/antiplatelets; Z80.6 Family history of leukemia; Z88.8 Allergy status to other drugs, medicaments and biological substances; Z85.038 Personal history of other malignant neoplasm of large intestine; Z98.1 Arthrodesis status; Z95.828 Presence of other vascular implants and grafts; Z85.3 Personal history of malignant neoplasm of breast; Z90.49 Acquired absence of other specified parts of digestive tract
CPT/HCPCS: 36415; 36600; 71045; 80053; 82803; 82948; 83735; 83880; 84145; 84484; 84550; 85018; 85025; 85027; 85610; 85730; 86870; 86885; 86900; 86901; 86902; 86905; 86922; 86945; 87081; 88300; 93005; 93306; 93971; 94640; 94667; 94668; 94760; 96365; 96366; 96376; 97110; 97116; 97162; 97530; 99285; A4618; A6258; A6446; A7000; C1757; C1758; G0378; J0690; J1170; J1644; J1940; J2001; J2175; J2212; J2250; J2704; J3010; J3420; J7040; J7120; J7626; P9016; P9045

== ENCOUNTER 2018-10-10 00:48 | Inpatient (IN) | payer MEDICARE ==
[2018-10-10] VITALS (11 sets, daily range): BP systolic 83–158; BP diastolic 31–53
[~2018-10-10] VITALS: Ht 167.6 cm; Wt 74.0 kg
[~2018-10-10 00:48] MED LIST changes: -APIX5TAB3 PO; +APIX5TAB5 PO; +FURO-149 PO; -HYDR-3972 PO
[2018-10-10] MEDS ORDERED: normal saline 1000ml 1,000 ML IV ONE (00:53)
[2018-10-10] MEDS ORDERED: ESOMEPRAZOLE 40 MG VIAL IV ONE (01:15)
[2018-10-10] MEDS ORDERED: pantoprazole 40 MG vial IV ONE (01:15)
[2018-10-10] MEDS ORDERED: ondansetron/PF 4mg/2ml inj IV ONE (01:20)
[2018-10-10 01:28] LABS: EOSINOPHILS # (AUTO) 0.1 X10'3 (0-0.9); LYMPHOCYTES # (AUTO) 0.8 X10'3 (1.1-4.8); MONOCYTES # (AUTO) 0.3 X10'3 (0-0.9); NEUTROPHILS # (AUTO) 1.2 X10'3 (1.8-7.7)
[2018-10-10 01:30] LABS: WHITE BLOOD COUNT 2.5 X10'3 (4.5-11.0)
[2018-10-10 01:34] LABS: HEMOGLOBIN 8.4 g/dl (12.0-16.0); PLATELET COUNT 175 X10'3 (140-440)
[2018-10-10 01:36] LABS: BASOPHILS % (AUTO) 1.5 % (0-1); EOSINOPHILS % (AUTO) 4.8 % (0-6); HEMATOCRIT 24.1 % (35.0-45.0); LYMPHOCYTES % (AUTO) 32.5 % (21-51); MEAN CORPUSCULAR HEMOGLOBIN 36.1 PG (27.0-31.0); MEAN CORPUSCULAR HGB CONC 34.6 g/dL (33.0-36.5); MEAN CORPUSCULAR VOLUME 104.1 FL (78-98); MONOCYTES % (AUTO) 12.1 % (2-12); NEUTROPHILS % (AUTO) 49.1 % (42-75); RED BLOOD COUNT 2.32 X10'6 (4.20-5.60); RED CELL DISTRIBUTION WIDTH 29.6 % (11.5-14.5)
[2018-10-10 01:42] LABS: ALANINE AMINOTRANSFERASE 19 U/L (12-78); ALBUMIN 2.6 G/DL (3.4-5.0); ALBUMIN/GLOBULIN RATIO 0.7 (1.1-1.5); ALKALINE PHOSPHATASE 80 IU/L (46-116); ANION GAP 8 (8-16); ASPARTATE AMINO TRANSFERASE 24 U/L (10-37); BILIRUBIN,TOTAL 0.3 MG/DL (0.1-1.0); BLOOD UREA NITROGEN 35 MG/DL (7-18); BUN/CREATININE RATIO 16.1 (6.6-38.0); CALCIUM 8.1 MG/DL (8.5-10.1); CHLORIDE 103 MMOL/L (99-107); CREATININE 2.18 MG/DL (0.40-0.90); GLUCOSE 121 MG/DL (70-104); LIPASE < 50 U/L (73-393); MAGNESIUM 2.2 MG/DL (1.5-2.4); POTASSIUM 4.8 MMOL/L (3.5-5.1); SODIUM 136 MMOL/L (135-145); TOTAL CARBON DIOXIDE 25.1 MMOL/L (24-32); TOTAL PROTEIN 6.1 G/DL (6.4-8.2); eGFR 21 ML/MIN
[2018-10-10 01:46] LABS: PARTIAL THROMBOPLASTIN TIME 32 SECONDS (22-32)
[2018-10-10] MEDS ORDERED: RIVA20TA PO (01:57)
[2018-10-10] MEDS ORDERED: SULF1TAB49 PO (01:58)
[2018-10-10] MEDS ORDERED: magnesium 2GM in 50ml NS 50 ML IV PRN (03:30)
[2018-10-10] MEDS ORDERED: magnesium 4gm in 100ml NS 100 ML IV PRN (03:30)
[2018-10-10] MEDS ORDERED: morphine 2 MG/ML inj. syringe IV PRN (03:30)
[2018-10-10] MEDS ORDERED: magnesium Cl slow-release 64mg tablet PO PRN (03:30)
[2018-10-10] MEDS ORDERED: potassium CL 10mEq/100ml bag 100 ML IV PRN ×2 (03:30)
[2018-10-10] MEDS ORDERED: potassium Cl 20 mEq SR tablet PO PRN ×2 (03:30)
[2018-10-10] MEDS: normal saline 1000ml 1,000 ML IV SCH ×3 (04:20→21:39)
--- NOTE | 2018-10-10 04:55 | NUR ---
Patient arrived in room PCU 3015 from the ED on a gurney with all her belongings. C/O being cold. All VS WNL NO C/O pain. Oriented to room, bed, and call light. Telemetry applied NSR. Wound Vac on left leg. I have received report from Herb LARIOS and had the opportunity to ask questions and assume patient care. Will continue to monitor.
--- NOTE | 2018-10-10 06:10 | NUR ---
Patient in room PCU 3015. I have received report from RIC Chen and had the opportunity to ask questions and assume patient care.
[2018-10-10 06:29] LABS: HEMATOCRIT 23.2 % (35.0-45.0); HEMOGLOBIN 7.7 g/dl (12.0-16.0); MEAN CORPUSCULAR HGB CONC 33.2 g/dL (33.0-36.5); MEAN CORPUSCULAR VOLUME 105.4 FL (78-98); MEAN PLATELET VOLUME 11.4 FL (7.4-10.4); PLATELET COUNT 162 X10'3 (140-440); RED CELL DISTRIBUTION WIDTH 29.2 % (11.5-14.5); WHITE BLOOD COUNT 2.6 X10'3 (4.5-11.0)
--- NOTE | 2018-10-10 06:35 | NUR ---
Problems reprioritized. Patient report given, questions answered & plan of care reviewed with Yelitza RN.
[2018-10-10] MEDS ORDERED: ESOMEPRAZOLE 40 MG VIAL IV SCH (08:00)
[2018-10-10] MEDS: K and/or MAG REPLACEMENT MC SCH (08:00)
[2018-10-10 08:13] LABS: TOTAL CELLS COUNTED 100
[2018-10-10 08:16] LABS: ANISOCYTOSIS 3+; PLATELET ESTIMATE NORMAL
[2018-10-10 08:17] LABS: ELLIPTOCYTES 1+; LARGE PLATELETS FEW
[2018-10-10 08:18] LABS: POIKILOCYTOSIS FEW
[2018-10-10 10:04] LABS: HEMATOCRIT 23.5 % (35.0-45.0); HEMOGLOBIN 7.7 g/dl (12.0-16.0); MEAN CORPUSCULAR HEMOGLOBIN 35.1 PG (27.0-31.0); MEAN CORPUSCULAR HGB CONC 32.8 g/dL (33.0-36.5); MEAN CORPUSCULAR VOLUME 107.1 FL (78-98); MEAN PLATELET VOLUME 11.7 FL (7.4-10.4); PLATELET COUNT 165 X10'3 (140-440); RED BLOOD COUNT 2.19 X10'6 (4.20-5.60); RED CELL DISTRIBUTION WIDTH 29.3 % (11.5-14.5); WHITE BLOOD COUNT 2.3 X10'3 (4.5-11.0)
--- NOTE | 2018-10-10 10:52 | NUR ---
Sent to Dr Underwood PAGER ID: [phone] MESSAGE: RE: Guerline Madsen [phone]. Can we please get an extended IV? -Yelitza [phone]
[2018-10-10] MEDS ORDERED: SENN-162 PO (10:55)
[2018-10-10] MEDS ORDERED: albuterol 2.5 MG/3 ML nebule NEB PRN (12:35)
[2018-10-10] MEDS: pantoprazole 40MG/NS 100ML BAG 100 ML IV SCH ×3 (12:54→21:39)
[2018-10-10] MEDS ORDERED: LIDOcaine Viscous 15ml cup ONE ×2 (13:12→13:31)
[2018-10-10] MEDS ORDERED: fentaNYL/PF 50MCG/1 ML 2ML syringe ONE ×2 (13:12→13:31)
[2018-10-10] MEDS ORDERED: MIDAZolam 5mg/5ml vial ONE ×2 (13:12→13:31)
--- NOTE | 2018-10-10 13:37 | NUR ---
Malnutrition consult: Pt admit w/ GIB s/p recent femoral bypass recent admit on blood thinners. Pt has no significant weakness, edema, or wt loss hx. Well nourished and well developed per MD note. Will continue to monitor for ONS needs once diet advanced from NPO pending PO hx this admit. Addendum: 10/10/18 at [address] Amended: Links added.
[2018-10-10] MEDS ORDERED: albuterol 2.5 MG/3 ML nebule NEB SCH (14:00)
[2018-10-10] MEDS ORDERED: PEG 3350/Na sulf,bicarb,Cl/KCl oral sol 4 liter bottle PO ONE (14:35)
[2018-10-10] MEDS: albuterol 2.5 MG/3 ML nebule NEB SCH ×2 (15:36→20:44)
--- NOTE | 2018-10-10 15:43 | NUR ---
Sent to Dr Underwood PAGER ID: [phone] MESSAGE: RE: Guerline Madsen [phone]. RT recommends PRN breathing Tx instead of her scheduled Tx's. -Yelitza [phone]
[2018-10-10 16:40] LABS: HEMATOCRIT 24.2 % (35.0-45.0); HEMOGLOBIN 7.8 g/dl (12.0-16.0); MEAN CORPUSCULAR HEMOGLOBIN 35.1 PG (27.0-31.0); MEAN CORPUSCULAR HGB CONC 32.4 g/dL (33.0-36.5); MEAN CORPUSCULAR VOLUME 108.4 FL (78-98); MEAN PLATELET VOLUME 11.5 FL (7.4-10.4); PLATELET COUNT 166 X10'3 (140-440); RED BLOOD COUNT 2.24 X10'6 (4.20-5.60); RED CELL DISTRIBUTION WIDTH 29.4 % (11.5-14.5); WHITE BLOOD COUNT 2.3 X10'3 (4.5-11.0)
--- NOTE | 2018-10-10 18:10 | NUR ---
Patient in room PCU 3015. I have received report from Yelitza LARIOS and had the opportunity to ask questions and assume patient care.
--- NOTE | 2018-10-10 18:40 | NUR ---
Problems reprioritized. Patient report given, questions answered & plan of care reviewed with RIC Chen.
[2018-10-10] MEDS: sulfamethoxazole/trimethoprim DS (800/160mg) tablet PO SCH (20:00)
[2018-10-10] MEDS: sennosides 8.6mg tablet PO SCH (20:00)
[2018-10-10] MEDS ORDERED: non-formulary drug (Budesonide/Formoterol Fumarate (Symbicort 160-4.5 Mcg Inhaler) 2 PUFFS IH SCH (20:00)
[2018-10-10] MEDS: budesonide 0.5mg/2ml UD nebule IH SCH (20:44)
[2018-10-10] MEDS: atorvastatin 20mg tablet PO SCH (21:37)
[2018-10-10] MEDS: metoprolol tartrate 25mg tablet PO SCH (21:38)
[2018-10-10 21:46] LABS: HEMATOCRIT 22.1 % (35.0-45.0); HEMOGLOBIN 7.2 g/dl (12.0-16.0); MEAN CORPUSCULAR HEMOGLOBIN 34.8 PG (27.0-31.0); MEAN CORPUSCULAR HGB CONC 32.5 g/dL (33.0-36.5); MEAN CORPUSCULAR VOLUME 106.8 FL (78-98); MEAN PLATELET VOLUME 11.5 FL (7.4-10.4); PLATELET COUNT 157 X10'3 (140-440); RED BLOOD COUNT 2.07 X10'6 (4.20-5.60); RED CELL DISTRIBUTION WIDTH 29.4 % (11.5-14.5); WHITE BLOOD COUNT 2.7 X10'3 (4.5-11.0)
--- NOTE | 2018-10-10 23:00 | NUR ---
Spoke with Herb in the blood bank. He stated DT specific antibodies in pt blood it has to be ordered from [place]. It takes over 5 hrs to get it here. 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
[2018-10-11] VITALS (9 sets, daily range): BP systolic 101–145; BP diastolic 31–78
[2018-10-11] MEDS: pantoprazole 40MG/NS 100ML BAG 100 ML IV SCH ×5 (01:00→21:48)
[2018-10-11] MEDS: albuterol 2.5 MG/3 ML nebule NEB SCH ×4 (02:32→20:52)
[2018-10-11 04:42] LABS: EOSINOPHILS # (AUTO) 0.1 X10'3 (0-0.9); EOSINOPHILS % (AUTO) 3.2 % (0-6); LYMPHOCYTES # (AUTO) 0.8 X10'3 (1.1-4.8); MEAN CORPUSCULAR HEMOGLOBIN 35.5 PG (27.0-31.0); MONOCYTES # (AUTO) 0.2 X10'3 (0-0.9); NEUTROPHILS # (AUTO) 0.9 X10'3 (1.8-7.7)
[2018-10-11 04:46] LABS: BASOPHILS % (AUTO) 1.3 % (0-1); LYMPHOCYTES % (AUTO) 40.3 % (21-51); MEAN CORPUSCULAR HGB CONC 33.2 g/dL (33.0-36.5); MEAN CORPUSCULAR VOLUME 106.9 FL (78-98); MEAN PLATELET VOLUME 11.3 FL (7.4-10.4); MONOCYTES % (AUTO) 11.1 % (2-12); NEUTROPHILS % (AUTO) 44.1 % (42-75); PLATELET COUNT 140 X10'3 (140-440); RED CELL DISTRIBUTION WIDTH 29.4 % (11.5-14.5)
[2018-10-11 04:58] LABS: ALBUMIN 2.3 G/DL (3.4-5.0); ANION GAP 6 (8-16); BLOOD UREA NITROGEN 30 MG/DL (7-18); BUN/CREATININE RATIO 14.8 (6.6-38.0); CALCIUM 7.5 MG/DL (8.5-10.1); CHLORIDE 108 MMOL/L (99-107); CREATININE 2.03 MG/DL (0.40-0.90); GLUCOSE 102 MG/DL (70-104); MAGNESIUM 2.1 MG/DL (1.5-2.4); POTASSIUM 4.6 MMOL/L (3.5-5.1); SODIUM 139 MMOL/L (135-145); TOTAL CARBON DIOXIDE 24.6 MMOL/L (24-32); eGFR 23 ML/MIN
[2018-10-11 05:00] LABS: HEMATOCRIT 19.2 % (35.0-45.0); HEMOGLOBIN 6.4 g/dl (12.0-16.0)
--- NOTE | 2018-10-11 05:03 | NUR ---
Notification: PAGER ID: [phone] MESSAGE: Guerline Madsen RM 3015A critical H/H 6.07/01.2 please advice April LARIOS ext [phone]
--- NOTE | 2018-10-11 05:33 | NUR ---
Notification: Paged Dr Amezcua again. PAGER ID: [phone] MESSAGE: Guerline Madsen RM 3015A critical H/H .07/01.2 please advice April LARIOS ext [phone]
--- NOTE | 2018-10-11 06:02 | NUR ---
GI lab called. Pts stool must be clear. Encourage pt to finish rest of prep. Will continue to monitor.
--- NOTE | 2018-10-11 06:26 | NUR ---
Problems reprioritized. Patient report given, questions answered & plan of care reviewed with Kim LARIOS.
--- NOTE | 2018-10-11 06:34 | NUR ---
Patient in room PCU 3015. I have received report from April and had the opportunity to ask questions and assume patient care.
--- NOTE | 2018-10-11 07:03 | NUR ---
PAGER ID: [phone] MESSAGE: [id number]: Guerline Madsen: FYI H/H is 6.4/19.2 can we get orders for blood transfusion? Dayami [phone].
[2018-10-11] MEDS: K and/or MAG REPLACEMENT MC SCH (07:18)
[2018-10-11] MEDS: sennosides 8.6mg tablet PO SCH ×2 (07:19→20:00)
[2018-10-11] MEDS: folic acid 1mg tablet PO SCH (07:19)
[2018-10-11] MEDS: multivitamins, therapeutics tablet PO SCH (07:19)
[2018-10-11] MEDS: vitamin B comp w/Vit. C tab 1 TAB TABLET PO SCH (07:19)
[2018-10-11] MEDS: sulfamethoxazole/trimethoprim DS (800/160mg) tablet PO SCH ×2 (07:20→20:24)
[2018-10-11] MEDS: furosemide 40mg tablet PO SCH (07:20)
[2018-10-11] MEDS: metoprolol tartrate 25mg tablet PO SCH ×2 (07:20→20:00)
[2018-10-11] MEDS: lisinopril 20mg tablet PO SCH (07:21)
[2018-10-11] MEDS: ondansetron/PF 4mg/2ml inj IV PRN ×2 (07:21→19:29)
[2018-10-11] MEDS ORDERED: ergocalciferol (Vitamin D) 50,000 unit capsule PO SCH (08:00)
[2018-10-11 08:01] LABS: TOTAL CELLS COUNTED 100
[2018-10-11 08:02] LABS: ANISOCYTOSIS 3+; PLATELET ESTIMATE DECREASED
[2018-10-11 08:04] LABS: ELLIPTOCYTES FEW
[2018-10-11 08:05] LABS: LARGE PLATELETS FEW
[2018-10-11] MEDS: budesonide 0.5mg/2ml UD nebule IH SCH ×2 (08:39→20:52)
[2018-10-11] MEDS: normal saline 1000ml 1,000 ML IV SCH ×2 (09:29→20:25)
--- NOTE | 2018-10-11 10:57 | NUR ---
PAGER ID: [phone] MESSAGE: [id number]: Guerline Madsen: Pt continues to have nausea after prn q6h zofran, unable to complete her golytely for colonoscopy, please advise. Thanks Dayami [phone]
--- NOTE | 2018-10-11 11:20 | NUR ---
Spoke with Dr. Puentes from GI Lab in regards to pt, pt has not been able to complete the GI prep d/t nausea, will reschedule colonscopy per Dr Puentes.
--- NOTE | 2018-10-11 14:14 | NUR ---
Spoke with Dr. Puentes in regards to pt and scheduled colonscopy, pt has not completed bowel prep, Dr. Puentes recommends to try and complete bowel prep until stool is watery and clear.
--- NOTE | 2018-10-11 16:34 | NUR ---
Patient refuses to have field start PIV to rt wrist removed.
[2018-10-11 16:43] LABS: HEMATOCRIT 22.6 % (35.0-45.0); HEMOGLOBIN 7.5 g/dl (12.0-16.0); MEAN CORPUSCULAR HEMOGLOBIN 34.4 PG (27.0-31.0); MEAN CORPUSCULAR VOLUME 104.1 FL (78-98); MEAN PLATELET VOLUME 11.4 FL (7.4-10.4); PLATELET COUNT 132 X10'3 (140-440); RED BLOOD COUNT 2.17 X10'6 (4.20-5.60); RED CELL DISTRIBUTION WIDTH 27.5 % (11.5-14.5)
--- NOTE | 2018-10-11 18:27 | NUR ---
Problems reprioritized. Patient report given, questions answered & plan of care reviewed with Conrad LARIOS.
--- NOTE | 2018-10-11 18:28 | NUR ---
I have reviewed and agree with all interventions, assessments performed and documented by Dayami LARIOS.
[2018-10-11] MEDS: atorvastatin 20mg tablet PO SCH (21:48)
[2018-10-11 22:33] LABS: HEMOGLOBIN 7.2 g/dl (12.0-16.0); MEAN CORPUSCULAR HEMOGLOBIN 34.9 PG (27.0-31.0); MEAN CORPUSCULAR VOLUME 105.7 FL (78-98); MEAN PLATELET VOLUME 11.4 FL (7.4-10.4); PLATELET COUNT 131 X10'3 (140-440); RED BLOOD COUNT 2.08 X10'6 (4.20-5.60); RED CELL DISTRIBUTION WIDTH 27.9 % (11.5-14.5); WHITE BLOOD COUNT 2.2 X10'3 (4.5-11.0)
[2018-10-12] VITALS (15 sets, daily range): BP systolic 102–157; BP diastolic 29–87
[2018-10-12] MEDS: albuterol 2.5 MG/3 ML nebule NEB SCH ×4 (02:52→20:11)
[2018-10-12 04:20] LABS: BASOPHILS % (AUTO) 1.2 % (0-1); EOSINOPHILS # (AUTO) 0.1 X10'3 (0-0.9); HEMOGLOBIN 7.4 g/dl (12.0-16.0); LYMPHOCYTES # (AUTO) 0.7 X10'3 (1.1-4.8); LYMPHOCYTES % (AUTO) 38.4 % (21-51); MEAN CORPUSCULAR HEMOGLOBIN 34.3 PG (27.0-31.0); MEAN CORPUSCULAR HGB CONC 32.3 g/dL (33.0-36.5); MEAN CORPUSCULAR VOLUME 106.2 FL (78-98); MEAN PLATELET VOLUME 11.3 FL (7.4-10.4); MONOCYTES # (AUTO) 0.2 X10'3 (0-0.9); MONOCYTES % (AUTO) 8.5 % (2-12); NEUTROPHILS # (AUTO) 0.9 X10'3 (1.8-7.7); NEUTROPHILS % (AUTO) 48.9 % (42-75); PLATELET COUNT 135 X10'3 (140-440); RED BLOOD COUNT 2.17 X10'6 (4.20-5.60); WHITE BLOOD COUNT 1.9 X10'3 (4.5-11.0)
[2018-10-12 04:27] LABS: ALBUMIN 2.3 G/DL (3.4-5.0); ANION GAP 10 (8-16); BLOOD UREA NITROGEN 23 MG/DL (7-18); BUN/CREATININE RATIO 13.5 (6.6-38.0); CALCIUM 7.4 MG/DL (8.5-10.1); CHLORIDE 109 MMOL/L (99-107); CREATININE 1.71 MG/DL (0.40-0.90); GLUCOSE 78 MG/DL (70-104); POTASSIUM 4.6 MMOL/L (3.5-5.1); SODIUM 141 MMOL/L (135-145); TOTAL CARBON DIOXIDE 22.1 MMOL/L (24-32); eGFR 28 ML/MIN
[2018-10-12] MEDS: pantoprazole 40MG/NS 100ML BAG 100 ML IV SCH ×5 (04:45→23:50)
[2018-10-12] MEDS: normal saline 1000ml 1,000 ML IV SCH ×3 (05:29→20:52)
[2018-10-12 05:43] LABS: ANISOCYTOSIS 3+; PLATELET ESTIMATE DECREASED; TOTAL CELLS COUNTED 100
[2018-10-12 05:45] LABS: ELLIPTOCYTES 1+; POIKILOCYTOSIS FEW
[2018-10-12 05:47] LABS: LARGE PLATELETS FEW
--- NOTE | 2018-10-12 06:10 | NUR ---
Patient in room PCU 3015. I have received report from Conrad LARIOS and had the opportunity to ask questions and assume patient care.
[2018-10-12] MEDS: budesonide 0.5mg/2ml UD nebule IH SCH ×2 (07:22→20:11)
[2018-10-12] MEDS: folic acid 1mg tablet PO SCH (07:39)
[2018-10-12] MEDS: multivitamins, therapeutics tablet PO SCH (07:39)
[2018-10-12] MEDS: sulfamethoxazole/trimethoprim DS (800/160mg) tablet PO SCH ×2 (07:39→19:53)
[2018-10-12] MEDS: vitamin B comp w/Vit. C tab 1 TAB TABLET PO SCH (07:39)
[2018-10-12] MEDS: sennosides 8.6mg tablet PO SCH ×2 (07:39→19:53)
[2018-10-12] MEDS: metoprolol tartrate 25mg tablet PO SCH ×2 (07:40→19:54)
[2018-10-12] MEDS: furosemide 40mg tablet PO SCH (07:40)
[2018-10-12] MEDS: lisinopril 20mg tablet PO SCH (07:40)
[2018-10-12] MEDS: K and/or MAG REPLACEMENT MC SCH (07:51)
--- NOTE | 2018-10-12 09:56 | NUR ---
WOUND INFECTION EDUCATION PROVIDED BY WOUND CARE 1. Patient instructed to call their primary doctor, or go the ED immediately if any of the following symptoms occur: * Increased pain in wound * Increase in drainage from the wound * Redness in the skin surrounding the wound * Warmth in the skin surrounding the wound * Bleeding from the wound * Temperature of 101 or greater 2. If any of these occur while in the hospital tell a nurse immediately. Addendum: 10/12/18 at 0956 by Jeevan Tovar RN Amended: Links added.
[2018-10-12 11:44] LABS: HEMATOCRIT 25.6 % (35.0-45.0); HEMOGLOBIN 8.4 g/dl (12.0-16.0); MEAN CORPUSCULAR HEMOGLOBIN 34.5 PG (27.0-31.0); MEAN CORPUSCULAR HGB CONC 32.7 g/dL (33.0-36.5); MEAN CORPUSCULAR VOLUME 105.4 FL (78-98); MEAN PLATELET VOLUME 11.6 FL (7.4-10.4); PLATELET COUNT 150 X10'3 (140-440); RED BLOOD COUNT 2.42 X10'6 (4.20-5.60); RED CELL DISTRIBUTION WIDTH 27.7 % (11.5-14.5); WHITE BLOOD COUNT 2.2 X10'3 (4.5-11.0)
--- NOTE | 2018-10-12 13:56 | NUR ---
Wound consult: Pt with multiple surgical wounds previously with wound VAC however has since been taken off by [facility]. Pt currently with active clear liquid diet order however documented as NPO pending colonoscopy. Will f/u with diet advancement and monitor need for ONS. Addendum: 10/12/18 at [address] Amended: Links added.
[2018-10-12] MEDS ORDERED: MIDAZolam 5mg/5ml vial ONE (14:28)
[2018-10-12] MEDS ORDERED: fentaNYL/PF 50MCG/1 ML 2ML syringe ONE (14:28)
--- NOTE | 2018-10-12 18:20 | NUR ---
Problems reprioritized. Patient report given, questions answered & plan of care reviewed with Nguyen LARIOS.
[2018-10-12] MEDS: atorvastatin 20mg tablet PO SCH (20:52)
[2018-10-13 03:00] VITALS: BP 143/38
[2018-10-13] MEDS: albuterol 2.5 MG/3 ML nebule NEB SCH ×4 (03:00→20:16)
[2018-10-13] MEDS: pantoprazole 40MG/NS 100ML BAG 100 ML IV SCH ×5 (04:07→22:19)
[2018-10-13 06:00] VITALS: BP 143/44
--- NOTE | 2018-10-13 06:10 | NUR ---
Patient in room PCU 3015. I have received report from RIC Cedillo and had the opportunity to ask questions and assume patient care.
[2018-10-13] MEDS: normal saline 1000ml 1,000 ML IV SCH (06:37)
[2018-10-13] MEDS: sennosides 8.6mg tablet PO SCH ×2 (07:51→19:34)
[2018-10-13] MEDS: multivitamins, therapeutics tablet PO SCH (07:51)
[2018-10-13] MEDS: furosemide 40mg tablet PO SCH (07:51)
[2018-10-13] MEDS: lisinopril 20mg tablet PO SCH (07:51)
[2018-10-13] MEDS: folic acid 1mg tablet PO SCH (07:51)
[2018-10-13] MEDS: vitamin B comp w/Vit. C tab 1 TAB TABLET PO SCH (07:51)
[2018-10-13] MEDS: metoprolol tartrate 25mg tablet PO SCH ×2 (07:52→19:34)
[2018-10-13] MEDS: sulfamethoxazole/trimethoprim DS (800/160mg) tablet PO SCH (07:52)
[2018-10-13] MEDS: K and/or MAG REPLACEMENT MC SCH (08:00)
[2018-10-13] MEDS: budesonide 0.5mg/2ml UD nebule IH SCH ×2 (08:54→20:17)
[2018-10-13 11:00] VITALS: BP 115/35
[2018-10-13 11:38] LABS: ALBUMIN 2.5 G/DL (3.4-5.0); ANION GAP 10 (8-16); BLOOD UREA NITROGEN 18 MG/DL (7-18); BUN/CREATININE RATIO 10.4 (6.6-38.0); CALCIUM 7.2 MG/DL (8.5-10.1); CHLORIDE 110 MMOL/L (99-107); CREATININE 1.73 MG/DL (0.40-0.90); GLUCOSE 122 MG/DL (70-104); MAGNESIUM 1.8 MG/DL (1.5-2.4); POTASSIUM 3.9 MMOL/L (3.5-5.1); SODIUM 139 MMOL/L (135-145); TOTAL CARBON DIOXIDE 19.1 MMOL/L (24-32); eGFR 28 ML/MIN
[2018-10-13 11:49] LABS: ABSOLUTE RETICS # 16700 /CUMM (23000-93000); BASOPHILS % (AUTO) 0.9 % (0-1); EOSINOPHILS # (AUTO) 0.1 X10'3 (0-0.9); EOSINOPHILS % (AUTO) 2.2 % (0-6); HEMATOCRIT 23.7 % (35.0-45.0); HEMOGLOBIN 7.7 g/dl (12.0-16.0); LYMPHOCYTES # (AUTO) 0.6 X10'3 (1.1-4.8); LYMPHOCYTES % (AUTO) 22.6 % (21-51); MEAN CORPUSCULAR HEMOGLOBIN 34.7 PG (27.0-31.0); MEAN CORPUSCULAR HGB CONC 32.5 g/dL (33.0-36.5); MEAN CORPUSCULAR VOLUME 106.6 FL (78-98); MEAN PLATELET VOLUME 11.6 FL (7.4-10.4); MONOCYTES # (AUTO) 0.2 X10'3 (0-0.9); MONOCYTES % (AUTO) 7.2 % (2-12); NEUTROPHILS # (AUTO) 1.9 X10'3 (1.8-7.7); NEUTROPHILS % (AUTO) 67.1 % (42-75); PLATELET COUNT 158 X10'3 (140-440); RED BLOOD COUNT 2.23 X10'6 (4.20-5.60); RETICULOCYTE % (AUTO) 0.8 % (0.5-1.5); WHITE BLOOD COUNT 2.8 X10'3 (4.5-11.0)
[2018-10-13 13:24] LABS: ANISOCYTOSIS 3+; PLATELET ESTIMATE NORMAL; TOTAL CELLS COUNTED 100
[2018-10-13 13:25] LABS: ELLIPTOCYTES FEW; SCHISTOCYTES FEW
[2018-10-13 13:26] LABS: BURR CELLS FEW; POLYCHROMASIA FEW
[2018-10-13 13:27] LABS: ROULEAUX 1+
--- NOTE | 2018-10-13 14:57 | NUR ---
F/u for wound consult: Patient's diet has been advanced to heart healthy with documented 0/50/0% PO intake first meal. Pt seen at bedside provided with written and verbal protein education. Pt reports low appetite since admit and states she doesn't like the food. Food preferences obtained and d/w dietary. Pt agreeable to cottage cheese with pineapple or melon with lunch and chocolate Ensure pudding with dinners, d/w dietary. Pt requesting chocolate Ensure Enlive TID, notified, [facility] Pt s/p colonoscopy with suspicion that bleeding was d/t angioectasia bleeding however GIB resolved. Pt denied food allergies, difficulty chewing/swallowing, or constipation/diarrhea. LBM 10/12. Will continue to follow. Recommendations: 1) Continue heart healthy diet 2) Cottage cheese with pineapple or melons q lunch; chocolate Ensure pudding q dinner 3) Chocolate Ensure Enlive TID pending MD verification 4) Wt per rx Addendum: 10/13/18 at [address] Amended: Links added.
[2018-10-13 15:00] VITALS: BP 179/37
--- NOTE | 2018-10-13 16:07 | NUR ---
Problem list re-prioritized. Outcomes reviewed and updated.
[2018-10-13 18:00] VITALS: BP 142/41
[2018-10-13] MEDS ORDERED: lactose-reduced food (Ensure Enlive) - 237ml bottle PO SCH (18:00)
--- NOTE | 2018-10-13 18:03 | NUR ---
Problems reprioritized. Patient report given, questions answered & plan of care reviewed with RIC Montgomery.
--- NOTE | 2018-10-13 18:10 | NUR ---
Patient in room PCU 5765O. I have received report from RIC Guillaume and had the opportunity to ask questions and assume patient care. Will continue to monitor
[2018-10-13] MEDS: atorvastatin 20mg tablet PO SCH (21:51)
[2018-10-13 22:00] VITALS: BP 122/36
[2018-10-14] MEDS: normal saline 1000ml 1,000 ML IV SCH (00:49)
[2018-10-14] MEDS: pantoprazole 40MG/NS 100ML BAG 100 ML IV SCH ×3 (01:00→09:22)
[2018-10-14 02:00] VITALS: BP 143/46
[2018-10-14] MEDS: albuterol 2.5 MG/3 ML nebule NEB SCH ×2 (03:00→08:04)
--- NOTE | 2018-10-14 05:30 | NUR ---
[place]rientee documentation: I have reviewed all interventions, assessments performed and documented by Tyler LARIOS. [place] Medication Administration: For this medication-pass time frame, all medication were reviewed, dispensed, administered and documented per hospital policy by Tyler LARIOS.
--- NOTE | 2018-10-14 06:17 | NUR ---
Problems reprioritized. Patient report given, questions answered & plan of care reviewed with Elda LARIOS & Yessica LARIOS.
--- NOTE | 2018-10-14 06:32 | NUR ---
Patient in room PCU 3015. I have received report from Valentina and had the opportunity to ask questions and assume patient care. Patient resting comfortably in no apparent distress. Will continue to monitor.
[2018-10-14 07:00] VITALS: BP 151/89
[2018-10-14] MEDS: vitamin B comp w/Vit. C tab 1 TAB TABLET PO SCH (07:18)
[2018-10-14] MEDS: lisinopril 20mg tablet PO SCH (07:20)
[2018-10-14] MEDS: clopidogrel 75mg tablet PO SCH ×2 (07:20→10:39)
[2018-10-14] MEDS: folic acid 1mg tablet PO SCH (07:20)
[2018-10-14] MEDS: metoprolol tartrate 25mg tablet PO SCH (07:22)
[2018-10-14] MEDS: multivitamins, therapeutics tablet PO SCH (07:22)
[2018-10-14] MEDS: sennosides 8.6mg tablet PO SCH (08:00)
[2018-10-14] MEDS: K and/or MAG REPLACEMENT MC SCH (08:00)
[2018-10-14] MEDS ORDERED: furosemide 40mg tablet PO SCH (08:00)
[2018-10-14] MEDS: budesonide 0.5mg/2ml UD nebule IH SCH (08:04)
--- NOTE | 2018-10-14 08:35 | NUR ---
I WAS AT PT BEDSIDE WITH DR MONTENEGRO. DR MONTENEGRO EXAMINING PT SURG INC. SERAFIN BROWN. DR MONTENEGRO INSTRUCTED ME TO REMOVE JAYCOB, EXCLUDING JAYCOB IN RED AREA OF CALF. DR MONTENEGRO INSTRUCTING PT TO FOLLOW UP WITH DR PELLETIER EARLY NEXT WEEK. DR MONTENEGRO STATED THAT INC WAS HEALING WELL WITHOUT S/S OF INFECTION. Addendum: 10/14/18 at 1433 by Joann Martin RN Amended: Links added.
[2018-10-14] MEDS ORDERED: FURO40TA4 PO (08:39)
[2018-10-14] MEDS ORDERED: PANT40TA4 PO (08:39)
[2018-10-14] MEDS ORDERED: FERR324T4 PO (08:40)
--- NOTE | 2018-10-14 09:25 | NUR ---
I SPOKE TO DR PELLETIER REGARDING SURGICAL INC. HE AGREED WITH REMOVING JAYCOB AND LEAVING CALF JAYCOB INTACT. HE REQUESTED PT TO SHE HIM IN HIS OFFICE ON WEDNESDAY. I SPOKE WITH DR PELLETIER OFFICE AND APPOINTMENT FOR 10-18 @ 0900 SECURED. PT INFORMED OF APPOINTMENT. A TOTAL OF 53 JAYCOB REMOVED FROM PT LEFT LEG. OVERALL PT TOLERATED WELL. JAYCOB WERE REMOVED FROM THIGH . STERI STRIPS APPLIED. TISSUE WELL APPROXIMATED AND CLEAR WITH NO S/S OF INFECTION. TOTAL OF 4 JAYCOB REMOVED FROM LEFT CALF. LEAVING APPROXIMATELY 15 JAYCOB INTACT. THESE JAYCOB WERE LOCATED IN REDDISH COLORED AREAS. TISSUE APPROXIMATED, RED AND WARM. SCANT DRAINAGE OF SEROUS TYPE FLUID. THESE FINDINGS WERE PREVIOUSLY VIEWED BY DR MONTENEGRO.. INC CLEANED AND COVERED WITH RADHA BETANCOURT. Addendum: 10/14/18 at 1508 by Joann Martin RN Amended: Links added.
--- NOTE | 2018-10-14 09:56 | NUR ---
Attempted to call Dr. Cerrato at [facility] at [phone] and left a voicemail. Will call back again soon.
[2018-10-14 11:00] VITALS: BP 150/42
--- NOTE | 2018-10-14 11:30 | NUR ---
Charge nurse asked Dr. Adam for an order for Procrit, however, order was not granted.
--- NOTE | 2018-10-14 12:00 | NUR ---
Spoke to Dr. Frank's RN Arianna at [facility] in regards to pt's Procrit dosage/route. Explained to Arianna that pt will possibly need to reschedule since she will not make it to her apt. Arianna then explained to me that the pt will need to call [facility] on WednesdayOct 17 to reschedule. I explained this to the pt.
--- NOTE | 2018-10-14 14:30 | NUR ---
Pt stable for discharge per MD order. Reviewed discharge instructions with pt including new prescriptions. Instructed pt to follow up with [facility] for her Procrit dose on Wednesday morning. I also instructed pt that the follow up appointment with Dr. Quiroz is scheduled for next Wednesday at 0900. I also explained to pt that a copy of the her CBC was faxed to to [facility] and that we attempted to get her scheduled today but Deena from [facility] stated that insurance will pay for a visit today since she was hospitalized today. New prescriptions delivered via [facility] bedside. IV discontinued with canula intact and tele discontinued. Daughter at bedside as all of the above was explained to the patient. Pt's daughter explained that she was very unhappy with [facility] and that she had made many calls. I expressed my sincere apology to the pt and pt's daughter for any confusion or inconvenience that could have been caused. Pt's daughter continued to be very upset. Addendum: 10/14/18 at 1617 by Elda River RN *Insurance would not pay for visit at Oncology office due to pt being hospitalized today
--- NOTE | 2018-10-14 16:11 | NUR ---
Spoke with Deena at [facility] and confirmed receipt of fax (CBC as requested). Informed Deena that the patient did not receive her procrit here at [facility]. Deena is aware that the patient verbalized understanding about following up at [facility] on Wednesday10/17/18.
--- NOTE | 2018-10-14 16:45 | NUR ---
DR PELLETIER TO RN STATION. I REVIEWED PHOTO OF PT LEG WITH HIM. HE CONTACTED HIS OFFICE TO ORDER A RX FOR CLINDAMYCIN 600 MG 3X DAILY. I CONTACTED DAUGHTER ROGELIO AND INFORMED HER OF RX. DAUGHTER WAS PLEASANT DURING THIS CONVERSATION. Addendum: 10/14/18 at 1703 by Joann Martin RN Amended: Links added.
== END 2018-10-14 14:30 | disposition home health service (06) | DRG 377 ==
LOC: ER 00:48 → PCU 3S 04:54 → CMPBEDREQ 20:26
PROVIDERS: ADMIT Internal Medicine; ATTEND Internal Medicine
PROC: 0DJ08ZZ Inspection of Upper Intestinal Tract, Via Natural or Artificial Opening Endoscopic (ICD-10-PCS; principal; 2018-10-10)
PROC: 30233N1 Transfusion of Nonautologous Red Blood Cells into Peripheral Vein, Percutaneous Approach (ICD-10-PCS; 2018-10-11)
PROC: 0DJD8ZZ Inspection of Lower Intestinal Tract, Via Natural or Artificial Opening Endoscopic (ICD-10-PCS; 2018-10-12)
DX: K55.21 Angiodysplasia of colon with hemorrhage (principal); N17.0 Acute kidney failure with tubular necrosis; E78.00 Pure hypercholesterolemia, unspecified; E78.5 Hyperlipidemia, unspecified; I12.9 Hypertensive chronic kidney disease with stage 1 through stage 4 chronic kidney disease, or unspecified chronic kidney disease; I73.9 Peripheral vascular disease, unspecified; G89.29 Other chronic pain; M54.9 Dorsalgia, unspecified; D64.9 Anemia, unspecified; D72.819 Decreased white blood cell count, unspecified; K31.7 Polyp of stomach and duodenum; K64.8 Other hemorrhoids; J44.9 Chronic obstructive pulmonary disease, unspecified; K57.30 Diverticulosis of large intestine without perforation or abscess without bleeding; N18.9 Chronic kidney disease, unspecified; Z80.6 Family history of leukemia; Z85.038 Personal history of other malignant neoplasm of large intestine; Z85.3 Personal history of malignant neoplasm of breast; Z90.49 Acquired absence of other specified parts of digestive tract; Z98.1 Arthrodesis status; Z88.8 Allergy status to other drugs, medicaments and biological substances; Z79.899 Other long term (current) drug therapy; Z92.21 Personal history of antineoplastic chemotherapy
CPT/HCPCS: 36415; 43235; 45378; 76937; 80048; 80053; 82607; 83690; 83735; 84443; 85025; 85027; 85045; 85610; 85730; 86870; 86880; 86885; 86900; 86901; 86902; 86905; 86906; 86922; 87081; 93005; 94640; 94760; 96361; 96374; 96375; 97116; 97162; 99152; 99153; 99285; A4620; C9113; G0378; J2250; J2270; J2405; J3010; J7030; J7040; J7626; P9016

== ENCOUNTER 2019-05-15 13:46 | Emergency (ER) | payer MEDICARE ==
[~2019-05-15] VITALS: Ht 170.2 cm; Wt 63.8 kg
[~2019-05-15 13:46] MED LIST changes: -APIX5TAB5 PO; -CYAN10006 IM; +FERR324T4 PO; -FERR325T39 PO; -FURO-149 PO; +FURO40TA4 PO; +LIDOcaine 1% W/epiNEPHrine 1:100,000 20ml vial ONE; +PANT40TA4 PO; +SENN-162 PO; -[UNRECOGNIZED DRUG - CODE] SQ
[2019-05-15 14:17] VITALS: BP 190/85
[2019-05-15] MEDS ORDERED: TETanus/Pertussis (Acell)/Diphther VAC/PF (Tdap-Adult) 0.5ml syringe IMVAC ONE (15:00)
== END 2019-05-15 16:38 | disposition home or self-care (01) ==
LOC: ER 13:47
DX: S51.811A Laceration without foreign body of right forearm, initial encounter (principal); E78.00 Pure hypercholesterolemia, unspecified; I12.9 Hypertensive chronic kidney disease with stage 1 through stage 4 chronic kidney disease, or unspecified chronic kidney disease; N18.9 Chronic kidney disease, unspecified; J45.909 Unspecified asthma, uncomplicated; G89.29 Other chronic pain; Z98.890 Other specified postprocedural states; F17.200 Nicotine dependence, unspecified, uncomplicated; Z72.89 Other problems related to lifestyle; Z79.899 Other long term (current) drug therapy; W20.8XXA Other cause of strike by thrown, projected or falling object, initial encounter; Y93.89 Activity, other specified; Y92.89 Other specified places as the place of occurrence of the external cause; Y99.8 Other external cause status
CPT/HCPCS: 12002; 90471; 90715; 99283

== ENCOUNTER 2019-11-01 14:53 | Emergency (ER) | payer MEDICARE ==
[~2019-11-01] VITALS: Ht 167.6 cm; Wt 55.2 kg
[~2019-11-01 14:53] MED LIST changes: +CLOP-32 PO; -CLOP75TA8 PO; -LIDOcaine 1% W/epiNEPHrine 1:100,000 20ml vial ONE; -SENN-162 PO; +SENN-263 PO
[2019-11-01 16:17] LABS: BASOPHILS % (AUTO) 0.2 % (0-1); EOSINOPHILS # (AUTO) 0.1 X10'3 (0-0.9); EOSINOPHILS % (AUTO) 2.9 % (0-6); HEMATOCRIT 31.6 % (35.0-45.0); HEMOGLOBIN 10.6 g/dl (12.0-16.0); LYMPHOCYTES # (AUTO) 0.9 X10'3 (1.1-4.8); LYMPHOCYTES % (AUTO) 40.4 % (21-51); MEAN CORPUSCULAR HEMOGLOBIN 36.6 PG (27.0-31.0); MEAN CORPUSCULAR HGB CONC 33.5 g/dL (33.0-36.5); MEAN CORPUSCULAR VOLUME 109.3 FL (78-98); MEAN PLATELET VOLUME 11.1 FL (7.4-10.4); MONOCYTES # (AUTO) 0.2 X10'3 (0-0.9); MONOCYTES % (AUTO) 7.7 % (2-12); NEUTROPHILS # (AUTO) 1.1 X10'3 (1.8-7.7); NEUTROPHILS % (AUTO) 48.8 % (42-75); PLATELET COUNT 123 X10'3 (140-440); RED BLOOD COUNT 2.89 X10'6 (4.20-5.60); RED CELL DISTRIBUTION WIDTH 15.4 % (11.5-14.5); WHITE BLOOD COUNT 2.3 X10'3 (4.5-11.0)
[2019-11-01 16:29] LABS: ALANINE AMINOTRANSFERASE 10 U/L (12-78); ALBUMIN 3.3 G/DL (3.4-5.0); ALBUMIN/GLOBULIN RATIO 0.9 (1.1-1.5); ALKALINE PHOSPHATASE 73 IU/L (46-116); ANION GAP 6 (8-16); ASPARTATE AMINO TRANSFERASE 10 U/L (10-37); BILIRUBIN,TOTAL 0.4 MG/DL (0.1-1.0); BLOOD UREA NITROGEN 16 MG/DL (7-18); CALCIUM 8.5 MG/DL (8.5-10.1); CHLORIDE 105 MMOL/L (99-107); CREATININE 1.33 MG/DL (0.40-0.90); GLUCOSE 101 MG/DL (70-104); POTASSIUM 3.8 MMOL/L (3.5-5.1); SODIUM 140 MMOL/L (135-145); TOTAL PROTEIN 6.8 G/DL (6.4-8.2); eGFR 38 ML/MIN
[2019-11-01] MEDS ORDERED: MUPI22OI30 TOP (16:41)
[2019-11-01 16:42] LABS: TOTAL CELLS COUNTED 100
[2019-11-01 16:43] LABS: PLATELET ESTIMATE DECREASED
[2019-11-01 16:45] LABS: ELLIPTOCYTES FEW; LARGE PLATELETS FEW; SCHISTOCYTES FEW
[2019-11-01 16:46] LABS: ANISOCYTOSIS FEW; POLYCHROMASIA FEW
[2019-11-01 17:17] VITALS: BP 150/68
== END 2019-11-01 17:19 | disposition home or self-care (01) ==
LOC: ER 14:54
DX: L03.115 Cellulitis of right lower limb (principal); R79.9 Abnormal finding of blood chemistry, unspecified; L97.819 Non-pressure chronic ulcer of other part of right lower leg with unspecified severity; E78.00 Pure hypercholesterolemia, unspecified; J44.9 Chronic obstructive pulmonary disease, unspecified; G89.29 Other chronic pain; F17.200 Nicotine dependence, unspecified, uncomplicated; I12.9 Hypertensive chronic kidney disease with stage 1 through stage 4 chronic kidney disease, or unspecified chronic kidney disease; N18.9 Chronic kidney disease, unspecified; Z85.3 Personal history of malignant neoplasm of breast; Z85.038 Personal history of other malignant neoplasm of large intestine; Z98.890 Other specified postprocedural states
CPT/HCPCS: 80053; 85007; 85025; 85651; 99283

== ENCOUNTER 2019-11-16 13:15 | Day surgery (SDC) | payer MEDICARE ==
[~2019-11-16 13:15] MED LIST changes: -PANT40TA4 PO; +PANT40TA54 PO
[2019-11-16] MEDS ORDERED: LIDOcaine 2% 5ml jelly ONE (13:45)
[2019-11-16 14:30] LABS: HEMOGLOBIN A1C 5.4 % (4.5-6.2)
[2019-11-16 14:33] LABS: EOSINOPHILS # (AUTO) 0.1 X10'3 (0-0.9); EOSINOPHILS % (AUTO) 2.4 % (0-6); HEMATOCRIT 28.4 % (35.0-45.0); HEMOGLOBIN 9.4 g/dl (12.0-16.0); LYMPHOCYTES # (AUTO) 0.8 X10'3 (1.1-4.8); LYMPHOCYTES % (AUTO) 23.8 % (21-51); MEAN CORPUSCULAR HEMOGLOBIN 36.7 PG (27.0-31.0); MEAN CORPUSCULAR HGB CONC 33.2 g/dL (33.0-36.5); MEAN CORPUSCULAR VOLUME 110.5 FL (78-98); MEAN PLATELET VOLUME 11.1 FL (7.4-10.4); MONOCYTES # (AUTO) 0.3 X10'3 (0-0.9); MONOCYTES % (AUTO) 7.8 % (2-12); NEUTROPHILS # (AUTO) 2.1 X10'3 (1.8-7.7); PLATELET COUNT 122 X10'3 (140-440); RED BLOOD COUNT 2.57 X10'6 (4.20-5.60); RED CELL DISTRIBUTION WIDTH 15.4 % (11.5-14.5); WHITE BLOOD COUNT 3.2 X10'3 (4.5-11.0)
[2019-11-16 14:55] LABS: ALANINE AMINOTRANSFERASE 11 U/L (12-78); ALBUMIN 3.1 G/DL (3.4-5.0); ALBUMIN/GLOBULIN RATIO 0.9 (1.1-1.5); ALKALINE PHOSPHATASE 63 IU/L (46-116); ANION GAP 7 (8-16); ASPARTATE AMINO TRANSFERASE 11 U/L (10-37); BILIRUBIN,TOTAL 0.4 MG/DL (0.1-1.0); BLOOD UREA NITROGEN 21 MG/DL (7-18); BUN/CREATININE RATIO 15.6 (6.6-38.0); C-REACTIVE PROTEIN 3.32 MG/DL (0.0-0.5); CALCIUM 8.2 MG/DL (8.5-10.1); CHLORIDE 105 MMOL/L (99-107); CREATININE 1.35 MG/DL (0.40-0.90); GLUCOSE 87 MG/DL (70-104); POTASSIUM 3.7 MMOL/L (3.5-5.1); SODIUM 140 MMOL/L (135-145); TOTAL CARBON DIOXIDE 28.5 MMOL/L (24-32); TOTAL PROTEIN 6.6 G/DL (6.4-8.2); eGFR 37 ML/MIN
[2019-11-16 16:13] LABS: LARGE PLATELETS MODERATE; PLATELET ESTIMATE DECREASED
== END 2019-11-16 14:22 | disposition home or self-care (01) ==
LOC: WOUND CARE 13:15
PROVIDERS: ATTEND Nurse Practitioner
DX: T81.89XA Other complications of procedures, not elsewhere classified, initial encounter (principal); L97.822 Non-pressure chronic ulcer of other part of left lower leg with fat layer exposed; F17.200 Nicotine dependence, unspecified, uncomplicated; M19.90 Unspecified osteoarthritis, unspecified site; F03.90 Unspecified dementia, unspecified severity, without behavioral disturbance, psychotic disturbance, mood disturbance, and anxiety; J44.9 Chronic obstructive pulmonary disease, unspecified; I12.9 Hypertensive chronic kidney disease with stage 1 through stage 4 chronic kidney disease, or unspecified chronic kidney disease; N18.4 Chronic kidney disease, stage 4 (severe); E78.00 Pure hypercholesterolemia, unspecified; R79.9 Abnormal finding of blood chemistry, unspecified; Z90.710 Acquired absence of both cervix and uterus; Z85.41 Personal history of malignant neoplasm of cervix uteri; Z85.3 Personal history of malignant neoplasm of breast; Z85.038 Personal history of other malignant neoplasm of large intestine; Y83.8 Other surgical procedures as the cause of abnormal reaction of the patient, or of later complication, without mention of misadventure at the time of the procedure; Y92.238 Other place in hospital as the place of occurrence of the external cause
CPT/HCPCS: 36415; 80053; 83036; 85008; 85025; 85651; 86140; 87070; 87075; 87077; 87102; 87186; 97597

== ENCOUNTER → 2019-11-24 | Day surgery (SDC) | payer MEDICARE ==
[~2019-11-24] MED LIST changes: +LIDOcaine 2% 5ml jelly ONE; +gentamicin 0.1% topical ointment 15gm TP ONE
== END | disposition home or self-care (01) ==
LOC: WOUND CARE 15:10
PROVIDERS: ATTEND Nurse Practitioner
DX: T81.89XD Other complications of procedures, not elsewhere classified, subsequent encounter (principal); L97.822 Non-pressure chronic ulcer of other part of left lower leg with fat layer exposed; F17.200 Nicotine dependence, unspecified, uncomplicated; M19.90 Unspecified osteoarthritis, unspecified site; F03.90 Unspecified dementia, unspecified severity, without behavioral disturbance, psychotic disturbance, mood disturbance, and anxiety; J44.9 Chronic obstructive pulmonary disease, unspecified; I12.9 Hypertensive chronic kidney disease with stage 1 through stage 4 chronic kidney disease, or unspecified chronic kidney disease; N18.4 Chronic kidney disease, stage 4 (severe); E78.00 Pure hypercholesterolemia, unspecified; R79.9 Abnormal finding of blood chemistry, unspecified; Z90.710 Acquired absence of both cervix and uterus; Z85.41 Personal history of malignant neoplasm of cervix uteri; Z85.3 Personal history of malignant neoplasm of breast; Z85.038 Personal history of other malignant neoplasm of large intestine; Y83.8 Other surgical procedures as the cause of abnormal reaction of the patient, or of later complication, without mention of misadventure at the time of the procedure
CPT/HCPCS: 97597

== ENCOUNTER 2019-12-01 14:40 | Day surgery (SDC) | payer MEDICARE ==
[~2019-12-01 14:40] MED LIST changes: -LIDOcaine 2% 5ml jelly ONE; -gentamicin 0.1% topical ointment 15gm TP ONE
[2019-12-01] MEDS ORDERED: LIDOcaine 2% 5ml jelly ONE (15:05)
[2019-12-01] MEDS ORDERED: gentamicin 0.1% topical ointment 15gm TP ONE (15:15)
== END 2019-12-01 15:33 | disposition home or self-care (01) ==
LOC: WOUND CARE 14:40
PROVIDERS: ATTEND Nurse Practitioner
DX: T81.89XD Other complications of procedures, not elsewhere classified, subsequent encounter (principal); I70.248 Atherosclerosis of native arteries of left leg with ulceration of other part of lower leg; L97.822 Non-pressure chronic ulcer of other part of left lower leg with fat layer exposed; M19.90 Unspecified osteoarthritis, unspecified site; J44.9 Chronic obstructive pulmonary disease, unspecified; I12.9 Hypertensive chronic kidney disease with stage 1 through stage 4 chronic kidney disease, or unspecified chronic kidney disease; N18.4 Chronic kidney disease, stage 4 (severe); E78.00 Pure hypercholesterolemia, unspecified; F03.90 Unspecified dementia, unspecified severity, without behavioral disturbance, psychotic disturbance, mood disturbance, and anxiety; F17.200 Nicotine dependence, unspecified, uncomplicated; Z90.710 Acquired absence of both cervix and uterus; Z85.41 Personal history of malignant neoplasm of cervix uteri; Z85.3 Personal history of malignant neoplasm of breast; Z85.038 Personal history of other malignant neoplasm of large intestine; Z86.14 Personal history of Methicillin resistant Staphylococcus aureus infection; Y83.8 Other surgical procedures as the cause of abnormal reaction of the patient, or of later complication, without mention of misadventure at the time of the procedure
CPT/HCPCS: 97597

== ENCOUNTER 2019-12-05 13:15 | Day surgery (SDC) | payer MEDICARE ==
[2019-12-05] MEDS ORDERED: LIDOcaine 2% 5ml jelly ONE (14:26)
== END 2019-12-05 14:58 | disposition home or self-care (01) ==
LOC: WOUND CARE 13:15
PROVIDERS: ATTEND Nurse Practitioner
DX: I70.248 Atherosclerosis of native arteries of left leg with ulceration of other part of lower leg (principal); L97.822 Non-pressure chronic ulcer of other part of left lower leg with fat layer exposed; M19.90 Unspecified osteoarthritis, unspecified site; J44.9 Chronic obstructive pulmonary disease, unspecified; I12.9 Hypertensive chronic kidney disease with stage 1 through stage 4 chronic kidney disease, or unspecified chronic kidney disease; N18.4 Chronic kidney disease, stage 4 (severe); E78.00 Pure hypercholesterolemia, unspecified; F03.90 Unspecified dementia, unspecified severity, without behavioral disturbance, psychotic disturbance, mood disturbance, and anxiety; F17.200 Nicotine dependence, unspecified, uncomplicated; Z90.710 Acquired absence of both cervix and uterus; Z85.41 Personal history of malignant neoplasm of cervix uteri; Z85.3 Personal history of malignant neoplasm of breast; Z85.038 Personal history of other malignant neoplasm of large intestine; Z86.14 Personal history of Methicillin resistant Staphylococcus aureus infection; Y83.8 Other surgical procedures as the cause of abnormal reaction of the patient, or of later complication, without mention of misadventure at the time of the procedure
CPT/HCPCS: 97597

== ENCOUNTER 2020-02-29 11:46 | Outpatient (CLI) | payer MEDICARE ==
[2020-02-29] MEDS ORDERED: LIDOcaine 2% 5ml jelly ONE (12:28)
== END 2020-02-29 23:59 | disposition home or self-care (01) ==
LOC: WOUND CARE 11:46
PROVIDERS: ATTEND Nurse Practitioner Family
DX: T81.89XD Other complications of procedures, not elsewhere classified, subsequent encounter (principal); I70.248 Atherosclerosis of native arteries of left leg with ulceration of other part of lower leg; L97.822 Non-pressure chronic ulcer of other part of left lower leg with fat layer exposed; M19.90 Unspecified osteoarthritis, unspecified site; J44.9 Chronic obstructive pulmonary disease, unspecified; I12.9 Hypertensive chronic kidney disease with stage 1 through stage 4 chronic kidney disease, or unspecified chronic kidney disease; N18.4 Chronic kidney disease, stage 4 (severe); E78.00 Pure hypercholesterolemia, unspecified; J98.11 Atelectasis; D61.818 Other pancytopenia; E87.5 Hyperkalemia; F03.90 Unspecified dementia, unspecified severity, without behavioral disturbance, psychotic disturbance, mood disturbance, and anxiety; F17.200 Nicotine dependence, unspecified, uncomplicated; Z85.038 Personal history of other malignant neoplasm of large intestine; Z90.710 Acquired absence of both cervix and uterus; Z86.14 Personal history of Methicillin resistant Staphylococcus aureus infection; Y83.8 Other surgical procedures as the cause of abnormal reaction of the patient, or of later complication, without mention of misadventure at the time of the procedure
CPT/HCPCS: 11042